=== PATIENT | male | born 1935 | race Caucasian/White ===

== ENCOUNTER 2024-05-13 13:54 | Observation (INO) | payer MEDICARE, BC, SELFPAY ==
[2024-05-13] VITALS (12 sets, daily range): BP systolic 114–148; BP diastolic 58–73; PULSE 62–78; RESP 15–26; TEMP 36.6–36.8; O2SAT 84–100; BMI 20.2
--- NOTE | 2024-05-13 13:59 | ED_ITS ---
Discharge Plan Disposition Patient Disposition: Admitted Condition: Serious Clinical Impressions Clinical Impression: Acute on chronic respiratory failure with hypoxia and hypercapnia, Lung mass, Elevated brain natriuretic peptide (BNP) level Discharge ED Provider: Chago Jasso HPI <LEXI Piper - Last Filed: 05/13/24 22:09> General Chief Complaint: Shortness of Breath/Dyspnea Stated Complaint: SOA Time Seen by Provider: 05/13/24 13:59 History of Present Illness HPI narrative: Patient presents for evaluation of shortness of breath. Patient reports a 3 to 5-day history of increasing dyspnea and dyspnea on exertion exercise intolerance. He has known COPD and wears oxygen at night however he has been get extremely winded even walking short distances. Patient was reportedly admitted at the end of April for a COPD exacerbation and pneumonia at [facility] in [employer] and then subsequently discharged to rehab facility however he has been home for approximately 2 weeks. Fortunately patient nor his son know his medic Tatian list and patient last was seen in our facility possibly in 2017 however we have minimal records as patient gets most of his care in [facility]. Patient's son noted that he walked from a chair to his bathroom he checked his oxygen saturation and it was in 70% at home. Hence EMS was called. Patient himself denies any fever chills hemoptysis hematochezia melena but reports dyspnea and subjective shortness of breath. Related Data Home Medications ?Medication ?Instructions ?Recorded ?Confirmed albuterol sulfate 90 mcg/actuation 90 mcg inhalation NEEDED PRN SOA 05/13/24 05/14/24 aerosol inhaler atorvastatin 40 mg tablet 40 mg PO HS 05/13/24 05/14/24 hydroxyzine pamoate 25 mg capsule 25 mg PO DAILY 05/13/24 metoprolol succinate 100 mg 100 mg PO DAILY 05/13/24 05/14/24 tablet,extended release 24 hr nifedipine 30 mg tablet,extended 30 mg PO DAILY 05/13/24 05/14/24 release 24 hr pantoprazole 40 mg tablet,delayed 40 mg PO BID 05/13/24 05/14/24 release prednisone 10 mg tablet 10 mg PO DAILY 05/13/24 05/14/24 tamsulosin 0.4 mg capsule 0.4 mg PO HS 05/13/24 05/14/24 levofloxacin 250 mg tablet 750 mg PO QODHS 05/14/24 Allergies Allergy/AdvReac Type Severity Reaction Status Date / Time No Known Allergies Allergy Unverified 04/17/17 14:04 [facility] <LEXI Piper - Last Filed: 05/13/24 22:09> [facility] Disclaimer: The information contained in this section may have been updated after the patient was seen, as this information can be updated by other users. Medical History (Updated 05/13/24 @ 23:16 by Moises Cordova MD) Bladder cancer COPD (chronic obstructive pulmonary disease) Lung cancer Surgical History History of intravascular stent placement Social History Smoking Status: Former smoker alcohol intake: former current occupational status: retired Travel in the last 8 weeks: None Have you lived/traveled outside US in past 30 days?: No Contact w/someone who lives/traveled outside US past 30 days?: No Exposure to someone with infectious disease in past 14 days?: No Do you have a fever (greater than 100.4 F or 38 C)?: No Have you tested positive for COVID-19: No Exposed to someone with COVID-19 in past 14 days?: No Do you have a sore throat?: No Do you have a cough?: No Do you have any weakness?: No Do you have any diarrhea?: No Are you experiencing any unusual bleeding?: No Do you have any muscle aches/pain?: No Do you have any abdominal pain?: No Are you experiencing loss of taste or smell?: No <LEXI Piper - Last Filed: 05/13/24 22:09> ROS Obtained: Yes Systems reviewed as appropriate & no additional complaints except as documented Physical Exam <LEXI Piper - Last Filed: 05/13/24 22:09> General General appearance: alert and in no apparent distress Respiratory Respiratory exam: Present respiratory distress (Patient has tachypnea and increased work of breathing), wheezes, accessory muscle use (Patient has intercostal muscle use) and prolonged expiratory phase; Absent normal lung sounds bilaterally (Patient has diminished breath sounds at the bases, right greater than left) Cardiovascular Cardiovascular exam: Present regular rate Abdominal Exam Abdominal exam: Present soft and normal bowel sounds; Absent tenderness, guarding or rebound Neurological Exam Neurological exam: Present alert and oriented X3 HEART Score <LEXI Piper - Last Filed: 05/13/24 22:09> HEART Score HEART Score assessment performed?: Yes History (anamnesis): Slightly suspicious ECG: Non-specific disturbance Age: >65 years Risk factors: Atherosclerosis history Troponin: </= normal limit HEART Score: 5 <Chago Jasso MD - Last Filed: 05/14/24 07:50> HEART Score HEART Score: 5 Critical Care <LEXI Piper - Last Filed: 05/13/24 22:09> Critical Care Time Critical Care Time: Yes Attestation: On 05/13/24, the high probability of a clinically significant, sudden or life threatening deterioration of the following system: Cardiac, pulmonary: Required my full and direct attention, intervention and personal management. The time I documented below is in addition to time spent performing reported procedures but includes the following listed in this critical care notation. Total Time Total Critical Care Time: 60 Medical Decision Making <LEXI Piper - Last Filed: 05/13/24 22:09> Medical Records Medical records reviewed: Yes I reviewed the patient's medical records. Richard Walton Pt receiving controlled substance: No Vital Signs Vital Signs: 05/13/24 13:55 05/13/24 13:56 05/13/24 14:31 Temperature Temperature Source Pulse Rate 73 Pulse Rate [Left Radial] 67 Respiratory Rate 26 H 20 Blood Pressure 118/58 L Blood Pressure [Right Arm] 148/64 H Blood Pressure Mean [Right Arm] 92 Blood Pressure Source Blood Pressure Position 02 Sat by Pulse Oximetry 84 L 100 94 L Oxygen Delivery Method Room Air Aerosol Mask Room Air Oxygen Flow Rate (LPM) 05/13/24 14:39 05/13/24 15:12 05/13/24 15:30 Temperature 97.8 F Temperature Source Oral Pulse Rate 69 Pulse Rate [Left Radial] Respiratory Rate 18 Blood Pressure 129/73 114/59 L Blood Pressure [Right Arm] Blood Pressure Mean [Right Arm] Blood Pressure Source Blood Pressure Position 02 Sat by Pulse Oximetry 100 Oxygen Delivery Method Room Air Room Air Oxygen Flow Rate (LPM) 05/13/24 16:01 05/13/24 16:31 05/13/24 16:47 Temperature Temperature Source Pulse Rate 62 66 Pulse Rate [Left Radial] Respiratory Rate 17 22 Blood Pressure 131/65 133/65 Blood Pressure [Right Arm] Blood Pressure Mean [Right Arm] Blood Pressure Source Blood Pressure Position 02 Sat by Pulse Oximetry 100 98 Oxygen Delivery Method Room Air Nasal Cannula Nasal Cannula Oxygen Flow Rate (LPM) 2 2 05/13/24 17:19 Temperature 98.2 F Temperature Source Pulse Rate 78 Pulse Rate [Left Radial] Respiratory Rate 16 Blood Pressure 133/65 Blood Pressure [Right Arm] Blood Pressure Mean [Right Arm] Blood Pressure Source Automatic Cuff Blood Pressure Position Supine 02 Sat by Pulse Oximetry Oxygen Delivery Method Room Air Oxygen Flow Rate (LPM) Lab Data Lab results reviewed: Yes I reviewed the patient's lab results. Labs: Lab Results 05/13/24 14:02: WBC 9.3, RBC 3.53 L, Hgb 11.1 L, Hct 37.0 L, MCV 104.8 H, MCH 31.4 H, MCHC 30.0 L, RDW 14.8, Plt Count 146, MPV 9.8, Neut % (Auto) 77.1, Lymph % (Auto) 13.8, Gonzales % (Auto) 7.9, Eos % (Auto) 0.6, Baso % (Auto) 0.3, Neut # (Auto) 7.1, Lymph # (Auto) 1.3, Gonzales # (Auto) 0.7, Eos # (Auto) 0.1, Baso # (Auto) 0.0, D-Dimer 1.24 H, Sodium 137, Potassium 4.2, Chloride 99, Carbon Dioxide 37 H, Anion Gap 5.2, BUN 25 H, Creatinine 1.40 H, Estimated Creat Clear 37, Estimated GFR 48 L, Est GFR ( Amer) 58 L, Glucose 165 H, Calcium 9.1, Magnesium 1.7, Total Bilirubin 0.8, AST 25, ALT 24, Alkaline Phosphatase 67, Troponin I < 0.01, NT-Pro-B Natriuret Pep 1510 H, Total Protein 6.0 L, Albumin 3.5, Globulin 2.5, Albumin/Globulin Ratio 1.4, Procalcitonin 0.067, HCV Ab CORKY w/Rflx PCR Qn Negative, HIV Ag/Ab Combo Qual Negative 05/13/24 14:10: VBG pH 7.34, VBG pCO2 63.6 H, VBG pO2 43.8 H, VBG HCO3 33.2 H, V BG Total CO2 35.1 H, VBG Base Excess 7.3 H, VBG Lactic Acid 2.0 05/13/24 15:28: Urine Color Yellow, Urine Appearance Clear, Urine pH 6.0, Ur Specific [place] 1.025, Urine Protein Negative, Urine Glucose (UA) Negative, Urine Ketones Negative, Urine Blood Negative, Urine Nitrate Negative, Urine Bilirubin Negative, Urine Urobilinogen 0.2, Ur Leukocyte Esterase Trace, Urine RBC 5-10, Urine WBC 10-20, Ur Squamous Epith Cells 3-5, Calcium Oxalate Crystal 1+, Urine Bacteria 2+, Urine Mucus 1+ 05/13/24 15:32: SARS-CoV-2 (PCR) Not detected, Influenza Type A (PCR) Not detected, Influenza Type B (PCR) Not detected, RSV (PCR) Detected A, Rhinovirus (PCR) Not detected 05/14/24 06:54 05/13/24 14:02 Response Orders (Tests/Meds): ED MEDICATIONS Generic Name Dose Route Start Last Admin Trade Name Freq PRN Reason Stop Dose Admin Albuterol/Ipratropium 3 ml 05/13/24 18:00 05/14/24 06:26 Ipratropium/Albuterol 3 Ml [facility] 06/12/24 17:59 3 ml Q6RT LIAM Administration Atorvastatin Calcium 40 mg 05/13/24 21:00 05/13/24 20:24 Atorvastatin 40mg Tablet PO 06/12/24 20:59 40 mg HS LIAM Administration Budesonide 0.5 mg 05/13/24 18:00 05/14/24 06:27 Budesonide 0.5mg/2ml [facility] 06/12/24 17:59 0.5 mg BIDRT LIAM Administration Enoxaparin Sodium 40 mg 05/14/24 09:00 Enoxaparin 40mg/0.4ml Syringe SUBCUT 06/13/24 08:59 DAILY [facility] Fluticasone/Umeclidinium/Vilanterol 1 puff 05/14/24 09:00 Fluticasone/Umeclidin/Vilanter 100/62.5/25mcg Inhaler 06/13/24 08:59 DAILY LIAM Ceftriaxone Sodium 1 gm/ 50 mls @ 100 mls/hr 05/13/24 16:15 05/13/24 16:17 Sodium Chloride IV 05/23/24 16:14 100 mls/hr Q24H LIAM Administration Azithromycin 500 mg/ Sodium 250 mls @ 250 mls/hr 05/13/24 16:15 05/13/24 16:17 Chloride IV 05/23/24 16:14 250 mls/hr Q24H LIAM Administration Metoprolol Succinate 100 mg 05/14/24 09:00 Metoprolol Succinate Xl 100mg Tablet PO 06/13/24 08:59 DAILY LIAM Prednisone 40 mg 05/14/24 09:00 Prednisone 20mg Tab PO 06/13/24 08:59 DAILY [facility] Sodium Chloride 3 ml 05/13/24 16:07 Sodium Chloride 3% 15ml [facility] 06/12/24 16:06 ONCE PRN INDUCE SPUTUM COLLECTION Tamsulosin HCl 0.4 mg 05/13/24 21:00 05/13/24 20:24 Tamsulosin 0.4mg Capsule PO 06/12/24 20:59 0.4 mg HS LIAM Administration Discontinued Medications Generic Name Dose Route Start Last Admin Trade Name Freq PRN Reason Stop Dose Admin Albuterol/Ipratropium 9 ml 05/13/24 14:24 05/13/24 14:28 Ipratropium/Albuterol 3 Ml [facility] 05/13/24 14:25 9 ml ONCE ONE Administration Furosemide 80 mg 05/13/24 14:46 05/13/24 15:01 Furosemide 40mg/4ml Vial IV 05/13/24 14:47 80 mg ONCE ONE Administration Magnesium Sulfate 2 gm in 50 mls @ 50 mls/hr 05/13/24 14:48 05/13/24 14:54 Magnesium Sulfate 2gm/50ml Premix IV 05/13/24 15:47 50 mls/hr ONCE ONE Administration Iopamidol 70 ml 05/13/24 15:02 05/13/24 15:08 Iopamidol-370 (76%);100ml Bottle IV 05/13/24 15:03 70 ml ONCE ONE Administration Methylprednisolone Sodium Succinate 125 mg 05/13/24 14:23 05/13/24 14:44 Methylprednisolone Sod Succ 125mg Vial IV 05/13/24 14:24 125 mg ONCE ONE Administration Sodium Chloride 40 ml 05/13/24 15:02 05/13/24 15:08 0.9 % Sodium Chloride 50 Ml Vial IV 05/13/24 15:03 40 ml ONCE ONE Administration Sodium Chloride 10 ml 05/13/24 15:02 05/13/24 15:08 Sodium Chloride 0.9% 10ml Syr (Rad Only) IV 05/13/24 15:03 10 ml ONCE ONE Administration ORDERS Category Date Time Status CT angio chest PE protocol Stat Cat Scan 05/13/24 14:40 Completed Pulmonology Consult [Consult to Pulmonology] [CONS] Cons 05/13/24 16:34 Active Routine Chest XR -- portable [XR chest portable] Stat Exams 05/13/24 14:24 Completed BNP [NT Pro Brain Natriuretic Pep.] Stat Lab 05/13/24 14:02 Completed CBC w/Auto Diff [Complete Blood Count Auto Diff] Stat Lab 05/13/24 14:02 Completed CMP [Comprehensive Metabolic Panel] Stat Lab 05/13/24 14:02 Completed Complete Blood Count Auto Diff AMLAB Lab 05/14/24 06:54 Completed Comprehensive Metabolic Panel AMLAB Lab 05/14/24 06:54 Received D-Dimer Stat Lab 05/13/24 14:02 Completed HIV Combo Stat Lab 05/13/24 14:02 Completed Hepatitis C Ab Qual. W/ RFX Stat Lab 05/13/24 14:02 Completed Magnesium AMLAB Lab 05/14/24 06:54 Received Magnesium Stat Lab 05/13/24 14:02 Completed Mini Respiratory Panel Stat Lab 05/13/24 15:32 Completed Procalcitonin Stat Lab 05/13/24 14:02 Completed QuantiFERON Client Incubated Stat Lab 05/13/24 16:45 Received Trop I [Troponin I] Stat Lab 05/13/24 14:02 Completed UA [Urinalysis and Microscopic] Stat Lab 05/13/24 15:28 Completed Blood Culture Stat Micro 05/13/24 14:09 Received Sputum Culture & Gram Stain Stat Micro 05/13/24 16:07 Ordered Urine Culture Stat Micro 05/13/24 15:28 Received Venous Blood Gas Routine RT 05/13/24 14:10 Results MDM Narrative Medical Decision Narrative: In summary patient is a 88-year-old male who presents to the emergency department for evaluation of dyspnea. Patient is normotensive at 148/64 pulse 67 breathing 26 times a minute satting at 84% on room air upon arrival, afebrile. Physical exam shows increased work of breathing with accessory muscle use and expiratory wheezes in all 4 canales diminished breath sounds at the bases, right greater than left but normal heart sounds. Patient has +1 dependent edema noted. Abdomen is soft no evidence of cellulitis anywhere patient appears to be in normal sinus rhythm on the bedside monitor. Differential diagnosis includes PE versus pneumonia versus COPD exacerbation versus CHF exacerbation versus malignancy etc. Initial workup will be conducted with hematologic labs VBG CT PE protocol urinalysis blood cultures. Initial interventions include DuoNeb Decadron Lasix. Initial workup reviewed by me shows a white count of 9.3 hemoglobin and hematocrit of 11.1 and 37.0 respectively with an absolute neutrophil count of 7.1, D-dimer is elevated at 1.24, VBG shows a pH of 7.37 pCO2 of 63.6 and a venous blood gas lactic acid of 2.0. Chemistry significant for a CO2 of 37 gap of 5.2 BUN of 25 creatinine 1.4 GFR 48 initial troponin of less than 0.01 and NT proBNP of 1510 and a procalcitonin of 0.067 urinalysis that on microscopic exam showed 5-10 red cells 10-20 white cells 3-5 epithelial cells and 2+ bacteria respiratory panel showed RSV. My informal interpretation of his CT scan PE protocol did not show any thrombus however it showed a right upper lobe consolidation that was not consistent with pneumonia but suggestive of possible mass along with another collection in the lateral sulcus. Patient also has left hilar irregularity suggestive of cancer. 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 He does not currently have an oncologist. I was able to obtain the discharge summary from [facility] in [employer] which I reviewed. Patient was admitted truly for COPD exacerbation and reported pneumonia and only imaging provided with a plain film chest x-ray which is consistent with the findings that I found today which is left hilar fullness in the right upper lobe abnormality on plain film chest x-ray as well as the lateral sulcus abnormality that apparently are unchanged since his admission in March. That raises the question of chronic infiltrate versus malignancy.. I started the patient on broad-spectrum antibiotics and the possibility of a atypical pneumonia after blood cultures were obtained. Given this I had interactive discussion with hospital medicine regarding patient's workup and findings and patient management. And he will be admitted for further evaluation and care pulmonology and oncology consults. <Chago Jasso MD - Last Filed: 05/14/24 07:50> Vital Signs Vital Signs: 05/13/24 13:55 05/13/24 13:56 05/13/24 14:31 Temperature Temperature Source Pulse Rate 73 Pulse Rate [Left Radial] 67 Respiratory Rate 26 H 20 Blood Pressure 118/58 L Blood Pressure [Right Arm] 148/64 H Blood Pressure Mean [Right Arm] 92 Blood Pressure Source Blood Pressure Position 02 Sat by Pulse Oximetry 84 L 100 94 L Oxygen Delivery Method Room Air Aerosol Mask Room Air Oxygen Flow Rate (LPM) 05/13/24 14:39 05/13/24 15:12 05/13/24 15:30 Temperature 97.8 F Temperature Source Oral Pulse Rate 69 Pulse Rate [Left Radial] Respiratory Rate 18 Blood Pressure 129/73 114/59 L Blood Pressure [Right Arm] Blood Pressure Mean [Right Arm] Blood Pressure Source Blood Pressure Position 02 Sat by Pulse Oximetry 100 Oxygen Delivery Method Room Air Room Air Oxygen Flow Rate (LPM) 05/13/24 16:01 05/13/24 16:31 05/13/24 16:47 Temperature Temperature Source Pulse Rate 62 66 Pulse Rate [Left Radial] Respiratory Rate 17 22 Blood Pressure 131/65 133/65 Blood Pressure [Right Arm] Blood Pressure Mean [Right Arm] Blood Pressure Source Blood Pressure Position 02 Sat by Pulse Oximetry 100 98 Oxygen Delivery Method Room Air Nasal Cannula Nasal Cannula Oxygen Flow Rate (LPM) 2 2 05/13/24 17:19 Temperature 98.2 F Temperature Source Pulse Rate 78 Pulse Rate [Left Radial] Respiratory Rate 16 Blood Pressure 133/65 Blood Pressure [Right Arm] Blood Pressure Mean [Right Arm] Blood Pressure Source Automatic Cuff Blood Pressure Position Supine 02 Sat by Pulse Oximetry Oxygen Delivery Method Room Air Oxygen Flow Rate (LPM) Lab Data Labs: Lab Results 05/13/24 14:02: WBC 9.3, RBC 3.53 L, Hgb 11.1 L, Hct 37.0 L, MCV 104.8 H, MCH 31.4 H, MCHC 30.0 L, RDW 14.8, Plt Count 146, MPV 9.8, Neut % (Auto) 77.1, Lymph % (Auto) 13.8, Gonzales % (Auto) 7.9, Eos % (Auto) 0.6, Baso % (Auto) 0.3, Neut # (Auto) 7.1, Lymph # (Auto) 1.3, [place] # (Auto) 0.7, Eos # (Auto) 0.1, Baso # (Auto) 0.0, D-Dimer 1.24 H, Sodium 137, Potassium 4.2, Chloride 99, Carbon Dioxide 37 H, Anion Gap 5.2, BUN 25 H, Creatinine 1.40 H, Estimated Creat Clear 37, Estimated GFR 48 L, Est GFR ( Amer) 58 L, Glucose 165 H, Calcium 9.1, Magnesium 1.7, Total Bilirubin 0.8, AST 25, ALT 24, Alkaline Phosphatase 67, Troponin I < 0.01, NT-Pro-B Natriuret Pep 1510 H, Total Protein 6.0 L, Albumin 3.5, Globulin 2.5, Albumin/Globulin Ratio 1.4, Procalcitonin 0.067, HCV Ab CORKY w/Rflx PCR Qn Negative, HIV Ag/Ab Combo Qual Negative 05/13/24 14:10: VBG pH 7.34, VBG pCO2 63.6 H, VBG pO2 43.8 H, VBG HCO3 33.2 H, V BG Total CO2 35.1 H, VBG Base Excess 7.3 H, VBG Lactic Acid 2.0 05/13/24 15:28: Urine Color Yellow, Urine Appearance Clear, Urine pH 6.0, Ur Specific [place] 1.025, Urine Protein Negative, Urine Glucose (UA) Negative, Urine Ketones Negative, Urine Blood Negative, Urine Nitrate Negative, Urine Bilirubin Negative, Urine Urobilinogen 0.2, Ur Leukocyte Esterase Trace, Urine RBC 5-10, Urine WBC 10-20, Ur Squamous Epith Cells 3-5, Calcium Oxalate Crystal 1+, Urine Bacteria 2+, Urine Mucus 1+ 05/13/24 15:32: SARS-CoV-2 (PCR) Not detected, Influenza Type A (PCR) Not detected, Influenza Type B (PCR) Not detected, RSV (PCR) Detected A, Rhinovirus (PCR) Not detected Response Orders (Tests/Meds): ED MEDICATIONS Generic Name Dose Route Start Last Admin Trade Name Freq PRN Reason Stop Dose Admin Albuterol/Ipratropium 3 ml 05/13/24 18:00 05/14/24 06:26 Ipratropium/Albuterol 3 Ml [facility] 06/12/24 17:59 3 ml Q6RT LIAM Administration Atorvastatin Calcium 40 mg 05/13/24 21:00 05/13/24 20:24 Atorvastatin 40mg Tablet PO 06/12/24 20:59 40 mg HS LIAM Administration Budesonide 0.5 mg 05/13/24 18:00 05/14/24 06:27 Budesonide 0.5mg/2ml [facility] 06/12/24 17:59 0.5 mg BIDRT LIAM Administration Enoxaparin Sodium 40 mg 05/14/24 09:00 Enoxaparin 40mg/0.4ml Syringe SUBCUT 06/13/24 08:59 DAILY [facility] Fluticasone/Umeclidinium/Vilanterol 1 puff 05/14/24 09:00 Fluticasone/Umeclidin/Vilanter 100/62.5/25mcg Inhaler 06/13/24 08:59 DAILY [facility] Ceftriaxone Sodium 1 gm/ 50 mls @ 100 mls/hr 05/13/24 16:15 05/13/24 16:17 Sodium Chloride IV 05/23/24 16:14 100 mls/hr Q24H LIAM Administration Azithromycin 500 mg/ Sodium 250 mls @ 250 mls/hr 05/13/24 16:15 05/13/24 16:17 Chloride IV 05/23/24 16:14 250 mls/hr Q24H LIAM Administration Metoprolol Succinate 100 mg 05/14/24 09:00 Metoprolol Succinate Xl 100mg Tablet PO 06/13/24 08:59 DAILY [facility] Prednisone 40 mg 05/14/24 09:00 Prednisone 20mg Tab PO 06/13/24 08:59 DAILY [facility] Sodium Chloride 3 ml 05/13/24 16:07 Sodium Chloride 3% 15ml [facility] 06/12/24 16:06 ONCE PRN INDUCE SPUTUM COLLECTION Tamsulosin HCl 0.4 mg 05/13/24 21:00 05/13/24 20:24 Tamsulosin 0.4mg Capsule PO 06/12/24 20:59 0.4 mg HS LIAM Administration Discontinued Medications Generic Name Dose Route Start Last Admin Trade Name Cynthia PRN Reason Stop Dose Admin Albuterol/Ipratropium 9 ml 05/13/24 14:24 05/13/24 14:28 Ipratropium/Albuterol 3 Ml Neb [facility] 05/13/24 14:25 9 ml ONCE ONE Administration Furosemide 80 mg 05/13/24 14:46 05/13/24 15:01 Furosemide 40mg/4ml Vial IV 05/13/24 14:47 80 mg ONCE ONE Administration Magnesium Sulfate 2 gm in 50 mls @ 50 mls/hr 05/13/24 14:48 05/13/24 14:54 Magnesium Sulfate 2gm/50ml Premix IV 05/13/24 15:47 50 mls/hr ONCE ONE Administration Iopamidol 70 ml 05/13/24 15:02 05/13/24 15:08 Iopamidol-370 (76%);100ml Bottle IV 05/13/24 15:03 70 ml ONCE ONE Administration Methylprednisolone Sodium Succinate 125 mg 05/13/24 14:23 05/13/24 14:44 Methylprednisolone Sod Succ 125mg Vial IV 05/13/24 14:24 125 mg ONCE ONE Administration Sodium Chloride 40 ml 05/13/24 15:02 05/13/24 15:08 0.9 % Sodium Chloride 50 Ml Vial IV 05/13/24 15:03 40 ml ONCE ONE Administration Sodium Chloride 10 ml 05/13/24 15:02 05/13/24 15:08 Sodium Chloride 0.9% 10ml Syr (Rad Only) IV 05/13/24 15:03 10 ml ONCE ONE Administration ORDERS Category Date Time Status CT angio chest PE protocol Stat Cat Scan 05/13/24 14:40 Completed Pulmonology Consult [Consult to Pulmonology] [CONS] Cons 05/13/24 16:34 Active Routine Chest XR -- portable [XR chest portable] Stat Exams 05/13/24 14:24 Completed BNP [NT Pro Brain Natriuretic Pep.] Stat Lab 05/13/24 14:02 Completed CBC w/Auto Diff [Complete Blood Count Auto Diff] Stat Lab 05/13/24 14:02 Completed CMP [Comprehensive Metabolic Panel] Stat Lab 05/13/24 14:02 Completed Complete Blood Count Auto Diff AMLAB Lab 05/14/24 06:54 Completed Comprehensive Metabolic Panel AMLAB Lab 05/14/24 06:54 Received D-Dimer Stat Lab 05/13/24 14:02 Completed HIV Combo Stat Lab 05/13/24 14:02 Completed Hepatitis C Ab Qual. W/ RFX Stat Lab 05/13/24 14:02 Completed Magnesium AMLAB Lab 05/14/24 06:54 Received Magnesium Stat Lab 05/13/24 14:02 Completed Mini Respiratory Panel Stat Lab 05/13/24 15:32 Completed Procalcitonin Stat Lab 05/13/24 14:02 Completed QuantiFERON Client Incubated Stat Lab 05/13/24 16:45 Received Trop I [Troponin I] Stat Lab 05/13/24 14:02 Completed UA [Urinalysis and Microscopic] Stat Lab 05/13/24 15:28 Completed Blood Culture Stat Micro 05/13/24 14:09 Received Sputum Culture & Gram Stain Stat Micro 05/13/24 16:07 Ordered Urine Culture Stat Micro 05/13/24 15:28 Received Venous Blood Gas Routine RT 05/13/24 14:10 Results MDM Narrative Medical Decision Narrative: In summary patient is a 88-year-old male who presents to the emergency department for evaluation of dyspnea. Patient is normotensive at 148/64 pulse 67 breathing 26 times a minute satting at 84% on room air upon arrival, afebrile. Physical exam shows increased work of breathing with accessory muscle use and expiratory wheezes in all 4 canales diminished breath sounds at the bases, right greater than left but normal heart sounds. Patient has +1 dependent edema noted. Abdomen is soft no evidence of cellulitis anywhere patient appears to be in normal sinus rhythm on the bedside monitor. Differential diagnosis includes PE versus pneumonia versus COPD exacerbation versus CHF exacerbation versus malignancy etc. Initial workup will be conducted with hematologic labs VBG CT PE protocol urinalysis blood cultures. Initial interventions include DuoNeb Decadron Lasix. Initial workup reviewed by me shows a white count of 9.3 hemoglobin and hematocrit of 11.1 and 37.0 respectively with an absolute neutrophil count of 7.1, D-dimer is elevated at 1.24, VBG shows a pH of 7.37 pCO2 of 63.6 and a venous blood gas lactic acid of 2.0. Chemistry significant for a CO2 of 37 gap of 5.2 BUN of 25 creatinine 1.4 GFR 48 initial troponin of less than 0.01 and NT proBNP of 1510 and a procalcitonin of 0.067 urinalysis that on microscopic exam showed 5-10 red cells 10-20 white cells 3-5 epithelial cells and 2+ bacteria respiratory panel showed RSV. My informal interpretation of his CT scan PE protocol did not show any thrombus however it showed a right upper lobe consolidation that was not consistent with pneumonia but suggestive of possible mass along with another collection in the lateral sulcus. Patient also has left hilar irregularity suggestive of cancer. 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 He does not currently have an oncologist. I was able to obtain the discharge summary from [facility] which I reviewed. Patient was admitted truly for COPD exacerbation and reported pneumonia and only imaging provided with a plain film chest x-ray which is consistent with the findings that I found today which is left hilar fullness in the right upper lobe abnormality on plain film chest x-ray as well as the lateral sulcus abnormality that apparently are unchanged since his admission in March. That raises the question of chronic infiltrate versus malignancy.. I started the patient on broad-spectrum antibiotics and the possibility of a atypical pneumonia after blood cultures were obtained. Given this I had interactive discussion with hospital medicine regarding patient's workup and findings and patient management. And he will be admitted for further evaluation and care pulmonology and oncology consults. I was consulted by the ALISTAIR, and we discussed the complexity of the problems being addressed. I approved the treatment and management plan for this patient's care in the Emergency Department, thus performing a substantive portion of the medical decision making. Chago Jasso MD
--- NOTE | 2024-05-13 14:01 | ECG_ITS ---
APPROVED REPORT Exam: Resting ECG HR:66 bpm ECG Measurements Heart Rate 66 AXES QRSd 112 QRS 59 QT 394 T 49 QTc 408 Conclusion SUPRAVENTRICULAR RHYTHM MODERATE INTRAVENTRICULAR CONDUCTION DELAY [110+ ms QRS DURATION] ABNORMAL RHYTHM ECG No STEMI appreciated though artifact significantly limits interpretation Electronically signed by : MICKY MEEHAN, 05/14/2024 03:18:33
--- NOTE | 2024-05-13 14:12 | PC.NURSE ---
2 sets of blood cultures sent to lab; blue band placed on left wrist.
[2024-05-13 14:20] LABS: VBG Base Excess 7.3 mmol/L (-2.4-2.3); VBG HCO3 33.2 mmol/L (23-30); VBG PCO2 63.6 mmol/L (35-51); VBG PH 7.34 mmol/L (7.31-7.41); VBG PO2 43.8 mmol/L (28-40); VBG Total CO2 35.1 mmol/L (23-27)
--- NOTE | 2024-05-13 14:24 | XR_ITS ---
FINAL REPORT CLINICAL HISTORY: Shortness of breath COMPARISON: None FINDINGS: Airspace disease within the right upper lobe is compatible with pneumonia. Elongated density left midlung is probably scarring. There is widening of the mediastinum, thoracic aneurysm not excluded. There is no pleural effusion. Heart size is normal. IMPRESSION: Findings suspicious for right upper lobe pneumonia. Continued follow-up recommended to exclude mass. Abnormal mediastinal widening which may be due to thoracic aneurysm. Chest CT follow-up may be considered. Reviewed, Interpreted and Dictated by Shorty Stoll MD Transcribed by Myah Art Authenticated and [facility]
[2024-05-13] MEDS: IPRATROPIUM/ALBUTEROL 3 ML NEB 9 ML IH (14:28)
[2024-05-13 14:30] LABS: Basophils % 0.3 % (0.1-2.0); Eosinophils # 0.1 K/mm3 (0.0-0.4); Eosinophils % 0.6 % (0.1-12.0); Hemoglobin 11.1 g/dL (14.1-18.0); Lymphocytes # 1.3 K/mm3 (0.7-4.5); Lymphocytes % 13.8 % (10-50); Mean Corpuscular Hemoglobin 31.4 pg (27.0-31.2); Mean Corpuscular Volume 104.8 fl (80-94); Mean Platelet Volume 9.8 fl (7.4-10.4); Monocytes # 0.7 K/mm3 (0.1-1.0); Monocytes % 7.9 % (1.7-9.3); Neutrophils # 7.1 K/mm3 (1.8-7.8); Neutrophils % 77.1 % (37.0-80.0); Platelet Count 146 K/mm3 (142-424); Red Blood Count 3.53 M/mm3 (4.60-6.20); Red Cell Distribution Width 14.8 % (11.5-17.5); White Blood Count 9.3 K/mm3 (4.8-10.8)
--- NOTE | 2024-05-13 14:30 | PC.NURSE ---
portable xray at
[2024-05-13 14:31] LABS: Albumin Level 3.5 g/dl (3.5-5.0); Chloride 99 mmol/L (98-107); Potassium 4.2 mmoL/L (3.5-5.1); Sodium 137 mmol/L (136-145)
[2024-05-13 14:34] LABS: Alanine Aminotransferase 24 U/L (12-78); Albumin/Globulin Ratio 1.4 (1.1-1.8); Alkaline Phosphatase 67 U/L (38-126); Anion Gap 5.2 mEq/L (5-15); Aspartate Amino Transferase 25 U/L (17-59); Bilirubin,Total 0.8 mg/dl (0.2-1.3); Blood Urea Nitrogen 25 mg/dl (9-20); Carbon Dioxide 37 mmol/L (22.0-30.0); Creatinine Clearance Estimated 37 mL/min (50-200); Estimated Glomerular Filt Rate 48 ml/min (>60); GFR (African American) 58 ML/MIN (>60); Globulin 2.5 g/dL (1.3-3.2)
[2024-05-13 14:35] LABS: Calcium 9.1 mg/dl (8.4-10.2); Glucose 165 mg/dl (74-100); Magnesium 1.7 mg/dl (1.6-2.3)
[2024-05-13 14:40] LABS: D-Dimer 1.24 ug/mL (0.0-0.5)
--- NOTE | 2024-05-13 14:40 | CT_ITS ---
FINAL REPORT TECHNIQUE: Thin section axial CT with contrast with multiplanar reconstruction This study was performed with techniques to keep radiation doses as low as reasonably achievable, (ALARA). Individualized dose reduction techniques using automated exposure control or adjustment of mA and/or kV according to the patient's size were employed. CLINICAL HISTORY: Shortness of breath COMPARISON: None FINDINGS: Pulmonary vessels enhance in normal fashion without evidence of embolism. Thoracic aorta shows no dissection or aneurysm. Irregular densities anterior right upper lobe may be inflammatory but less likely neoplasm. The largest component measures up to 18 mm and is well seen on image 35 of series 5. There is a spiculated masslike density in the left lower lobe and left perihilar region measuring 36 x 30 x 10 mm. Consolidation in the posterior aspect of the right upper lobe is suspicious for pneumonia. There is mild bronchial wall thickening which is compatible with bronchitis. There is no significant pleural effusion. There is no significant pericardial effusion. No mediastinal or hilar adenopathy is present. Limited images of the upper abdomen demonstrate severe right renal atrophy with bilateral renal stones. IMPRESSION: No evidence of pulmonary embolism Masslike opacity left perihilar region suspicious for neoplasm but pneumonia not excluded. Indeterminate opacities right upper lobe. PET-CT correlation recommended. Reviewed, Interpreted and Dictated by Shorty Stoll MD Transcribed by Lien Guajardo Authenticated and [facility]
[2024-05-13 14:44] LABS: NT Pro Brain Natriuretic Pep. 1510 pg/mL (0-450)
[2024-05-13] MEDS: METHYLPREDNISOLONE SOD SUCC 125MG VIAL 125 MG IV (14:44)
[2024-05-13 14:49] LABS: Troponin I < 0.01 ng/ml (0.00-0.034)
[2024-05-13] MEDS: MAGNESIUM SULFATE IN WATER 2 GM/50 ML PIGGYBACK IV (14:54)
--- NOTE | 2024-05-13 14:57 | PC.NURSE ---
pt to CT via stretcher
[2024-05-13] MEDS: FUROSEMIDE 40MG/4ML VIAL 80 MG IV (15:01)
[2024-05-13] MEDS: IOPAMIDOL-370 (76%);100ML BOTTLE 70 ML IV (15:08)
[2024-05-13] MEDS: 0.9 % SODIUM CHLORIDE 50 ML VIAL 40 ML IV (15:08)
[2024-05-13] MEDS: SODIUM CHLORIDE 0.9% 10ML SYR (RAD ONLY) 10 ML IV (15:08)
--- NOTE | 2024-05-13 15:16 | PC.NURSE ---
Pt returns to room 6. Reconnected to monitor. Pt unable to void at this time. Pt resting with call light in reach. side rails up x2
[2024-05-13 15:20] LABS: HIV Combo NEGATIVE (Negative)
[2024-05-13 15:29] LABS: Hepatitis C Ab Qual. W/ RFX NEGATIVE (Negative)
[2024-05-13 15:33] LABS: Microscopic, Urine URINE MICROSCOPIC (MICROSCOPIC)
[2024-05-13 15:35] LABS: Coronavirus 19, PCR Not Detected (NotDetected); Human Rhinovirus Not Detected (NotDetected); Influenza A, PCR Not Detected (NotDetected); Influenza B, PCR Not Detected (NotDetected)
[2024-05-13 15:47] LABS: Appearance,Urine CLEAR (Clear); Bilirubin,Urine Negative (Negative); Blood, Urine Negative (Negative); Color,Urine YELLOW (Yellow); Glucose,Urine (UA) Negative (Negative); Ketones,Urine Negative (Negative); Leukocyte Esterase,Urine TRACE (Negative); Nitrate,Urine Negative (Negative); Protein,Urine Negative (Negative); Specific Gravity, Urine 1.025 (1.005-1.030); Urobilinogen,Urine 0.2 EU/dl (0.2)
--- NOTE | 2024-05-13 15:54 | PC.NURSE ---
LEXI Newton at BS for update on POC. Family at BS
[2024-05-13] MEDS: AZITHROMYCIN 500 MG in 0.9 % SODIUM CHLORIDE 250 ML 250 MG IV (16:17)
[2024-05-13] MEDS: CEFTRIAXONE 1 GM 1 GM in 0.9 % SODIUM CHLORIDE 50 ML IV (16:17)
[2024-05-13 16:25] LABS: Procalcitonin 0.067 ng/mL (0.0-2.0)
--- NOTE | 2024-05-13 16:29 | PC.NURSE ---
Don speaking with HM for possible admission
--- NOTE | 2024-05-13 16:33 | EXP.HP ---
History of Present Illness *Admission Date: 05/13/24 *Reason for visit:: Short of breath *History of present illness: Mr. Lira is an 88-year-old male with previous history of tobacco use, CAD, CKD 3, BPH, history of lung cancer, COPD on chronic oxygen at night who presented to the ER with worsening shortness of breath for the past 2 to 3 days. Was recently admitted at [facility] in March from 04 24 through 04 29. Discharged to rehab ([facility]). Presents to the ER today because of worsening shortness of breath. Has not been home along but feels weak. On arrival to the ER, hypoxic with exertion. Afebrile. Denies nausea or vomiting. Having productive cough however. Quite wheezy on initial exam responded well to nebulizers. Found to have slight elevation of BNP. Chest imaging concerning for perihilar lesion on left lung and right upper lobe lesions suspicious for cancer versus infection. Respiratory panel positive for RSV. Medicine consulted for admission for COPD exacerbation. After arrival to the floor, patient is sitting at the bedside on 2 L nasal cannula eating dinner. Answer questions appropriately. Alert and oriented x 4. States he is feeling somewhat short of breath. Denies any fever, nausea, vomiting. Has had a slightly productive cough for 2 to 3 days. Very hard of hearing during interview. States he feels too weak to be at home. Lives with family. [facility] Disclaimer: The information contained in this section may have been updated after the patient was seen, as this information can be updated by other users. Medical History (Updated 05/13/24 @ 23:16 by Moises Cordova MD) Bladder cancer COPD (chronic obstructive pulmonary disease) Lung cancer Surgical History History of intravascular stent placement Social History Smoking Status: Former smoker alcohol intake: former current occupational status: retired Travel in the last 8 weeks: None Have you lived/traveled outside [place] in past 30 days?: No Contact w/someone who lives/traveled outside US past 30 days?: No Exposure to someone with infectious disease in past 14 days?: No Do you have a fever (greater than 100.4 F or 38 C)?: No Have you tested positive for COVID-19: No Exposed to someone with COVID-19 in past 14 days?: No Do you have a sore throat?: No Do you have a cough?: No Do you have any weakness?: No Do you have any diarrhea?: No Are you experiencing any unusual bleeding?: No Do you have any muscle aches/pain?: No Do you have any abdominal pain?: No Are you experiencing loss of taste or smell?: No Review of Systems Review of Systems Review of systems (narrative): 14 point review of systems performed, pertinent positives and negatives as per [facility] Meds Home Medications and Allergies Home Medications ?Medication ?Instructions ?Recorded ?Confirmed ?Type albuterol sulfate 90 mcg/actuation 90 mcg inhalation NEEDED PRN SOA 05/13/24 05/13/24 History aerosol inhaler atorvastatin 40 mg tablet 40 mg PO HS 05/13/24 05/13/24 History hydroxyzine pamoate 25 mg capsule 25 mg PO DAILY 05/13/24 05/13/24 History metoprolol succinate 100 mg 100 mg PO DAILY 05/13/24 05/13/24 History tablet,extended release 24 hr nifedipine 30 mg tablet,extended 30 mg PO DAILY 05/13/24 05/13/24 History release 24 hr pantoprazole 40 mg tablet,delayed 40 mg PO BID 05/13/24 05/13/24 History release prednisone 10 mg tablet 10 mg PO DAILY 05/13/24 05/13/24 History tamsulosin 0.4 mg capsule 0.4 mg PO HS 05/13/24 05/13/24 History New Prescriptions to Start Prescriptions: Allergies Allergy/AdvReac Type Severity Reaction Status Date / Time No Known Allergies Allergy Unverified 04/17/17 14:04 Exam Data for Last 24 hours Vital signs and Labs for Last 24 Hours: Temp Pulse Resp BP Pulse Ox O2 Del Method 97.8 F 62 17 131/65 100 Room Air 05/13/24 14:39 05/13/24 16:01 05/13/24 16:01 05/13/24 16:01 05/13/24 16:01 05/13/24 16:01 Laboratory Results - last 24 hr 05/13/24 14:02: WBC 9.3, RBC 3.53 L, Hgb 11.1 L, Hct 37.0 L, MCV 104.8 H, MCH 31.4 H, MCHC 30.0 L, RDW 14.8, Plt Count 146, MPV 9.8, Neut % (Auto) 77.1, Lymph % (Auto) 13.8, [place] % (Auto) 7.9, Eos % (Auto) 0.6, Baso % (Auto) 0.3, Neut # (Auto) 7.1, Lymph # (Auto) 1.3, [place] # (Auto) 0.7, Eos # (Auto) 0.1, Baso # (Auto) 0.0, D-Dimer 1.24 H, Sodium 137, Potassium 4.2, Chloride 99, Carbon Dioxide 37 H, Anion Gap 5.2, BUN 25 H, Creatinine 1.40 H, Estimated Creat Clear 37, Estimated GFR 48 L, Est GFR ( Amer) 58 L, Glucose 165 H, Calcium 9.1, Magnesium 1.7, Total Bilirubin 0.8, AST 25, ALT 24, Alkaline Phosphatase 67, Troponin I < 0.01, NT-Pro-B Natriuret Pep 1510 H, Total Protein 6.0 L, Albumin 3.5, Globulin 2.5, Albumin/Globulin Ratio 1.4, HCV Ab CORKY w/Rflx PCR Qn Negative, HIV Ag/Ab Combo Qual Negative 05/13/24 14:10: VBG pH 7.34, VBG pCO2 63.6 H, VBG pO2 43.8 H, VBG HCO3 33.2 H, VBG Total CO2 35.1 H, VBG Base Excess 7.3 H, VBG Lactic Acid 2.0 05/13/24 15:28: Urine Color Yellow, Urine Appearance Clear, Urine pH 6.0, Ur Specific [place] 1.025, Urine Protein Negative, Urine Glucose (UA) Negative, Urine Ketones Negative, Urine Blood Negative, Urine Nitrate Negative, Urine Bilirubin Negative, Urine Urobilinogen 0.2, Ur Leukocyte Esterase Trace I & O for Last 24 hours: Intake & Output 05/10/24 05/11/24 05/12/24 05/13/24 23:59 23:59 23:59 23:59 Weight 69.4 kg Constitutional Constitutional: no acute distress, cachectic, chronically ill appearing and cooperative *Routine HEENT Exam Head: Present normocephalic Eye: Present EOMI and PERRL ENT: Present mucous membranes moist *Routine Neck Exam Neck: Present supple; Absent lymphadenopathy *Routine Respiratory Exam Respiratory: Present prolonged expiratory phase, rhonchi, wheezes and diminished air movement; Absent crackles *Routine Cardiovascular Exam Cardiovascular: Present RRR *Routine Abdominal Exam Abdominal: Present soft and normoactive bowel sounds; Absent tenderness *Routine Rectal Exam Rectal:: deferred *Routine Genitalia Exam Genitalia:: deferred *Routine Extremities Exam Extremities: Absent cyanosis, clubbing or edema *Routine Skin Exam Skin: Present warm; Absent rash *Routine Neurological Exam Neurological: Present alert, oriented X3 and moving all extremities; Absent altered mental status or hearing grossly intact (Very hard of hearing) Assessment and Plan *Assessment and plan (1) Acute and chronic respiratory failure with hypoxia: Status: Acute Category: Medical Code(s): J96.21 - Acute and chronic respiratory failure with hypoxia (2) COPD (chronic obstructive pulmonary disease): Status: Acute Category: Medical Code(s): J44.9 - Chronic obstructive pulmonary disease, unspecified (3) Lung mass: Status: Acute Category: Medical Code(s): R91.8 - Other nonspecific abnormal finding of lung field (4) CKD (chronic kidney disease): Status: Acute Category: Medical Code(s): N18.9 - Chronic kidney disease, unspecified (5) Severe protein-calorie malnutrition: Status: Acute Category: Medical Code(s): E43 - Unspecified severe protein-calorie malnutrition Plan 89-year-old male with COPD, CAD, BPH, nocturnal oxygen requirement. Presents with worsening shortness of breath. Found to be RSV positive. Discussed case with ER provider, request admission for further management COPD exacerbation and evaluation of abnormal lesions on chest imaging. I agreed to admit for further care. Patient has previously gotten his care at [facility] in [facility]. Reviewed records from their facility, recent admission at the end of March for similar presentation. Discharged from their hospital to rehab. Recently returned home and remains quite weak. Has no infection. Necessitating inpatient care. Problems addressed as follows: Acute hypoxemic respiratory failure COPD exacerbation - Chest imaging personally reviewed showing left perihilar mass and right upper lobe patchy findings concerning for pneumonia versus mass. -Initiated on ceftriaxone and azithromycin in the ER. Plan to continue daily. Continue prednisone 40 mg daily for COPD exacerbation. -Pulmonology consulted to assist with care and further eval of lung lesions seen on chest imaging -Supplemental oxygen as needed, goal sats greater 90%. Currently on 2 L. - Blood gas with compensated respiratory acidosis, pH 7.34. pCO2 63. Chemistry shows normal potassium of 4.2, bicarb 37 on CMP. Kidney function consistent with records from [facility] from March that I personally reviewed. BUN 25, creatinine 1.4. Consistent with CKD. -Blood and sputum cultures pending History of CAD and hyperlipidemia. Continue Lipitor 40 mg nightly, metoprolol succinate 100 mg daily, received Lasix 80 mg IV once. Will evaluate daily for further diuretic needs. -BNP elevated at 1510. Presentation concerning for CHF or COPD exacerbation. Respiratory panel positive for RSV. In light of new oxygen requirement from baseline, viral panel findings, and productive cough, will treat for COPD exacerbation. patient does not clinically look volume overloaded on exam. Holding on further diuresis BPH: Continue tamsulosin 0.4 mg nightly Given weakness, recurrent admissions, protein calorie malnutrition, will have PT and OT evaluate patient for home health versus placement. DNR Regular diet
[2024-05-13 16:56] LABS: Bacteria,Urine 2+ /lpf; Calcium Oxalate Crystals,Urine 1+ /lpf; Mucus,Urine 1+ /lpf
--- NOTE | 2024-05-13 17:04 | PC.NURSE ---
care handoff report called to Selma DYSON
[2024-05-13 17:06] LABS: Respiratory Syncytial Virus Detected (NotDetected)
--- NOTE | 2024-05-13 17:30 | PC.NURSE ---
arrived by w/c from ED
--- NOTE | 2024-05-13 17:42 | PC.NURSE ---
pt unable to recall what medications he takes at home. pt also states that he has an allergy to a medication but cannot remember the name. says it was for a kidney infection. will attempt to ask son when he arrives
[2024-05-13] MEDS: IPRATROPIUM/ALBUTEROL 3 ML NEB IH ×2 (18:14→23:28)
[2024-05-13] MEDS: BUDESONIDE 0.5MG/2ML NEB 0.5 MG IH (18:41)
[2024-05-13] MEDS: TAMSULOSIN 0.4MG CAPSULE 0.4 MG PO (20:24)
[2024-05-13] MEDS: ATORVASTATIN 40MG TABLET 40 MG PO (20:24)
[2024-05-14] VITALS (7 sets, daily range): BP systolic 130–149; BP diastolic 69–84; PULSE 70–89; RESP 17–22; TEMP 36.5–36.9; O2SAT 92–98; BMI 20.3
[2024-05-14] MEDS: IPRATROPIUM/ALBUTEROL 3 ML NEB IH ×2 (06:26→12:48)
[2024-05-14] MEDS: BUDESONIDE 0.5MG/2ML NEB 0.5 MG IH (06:27)
[2024-05-14 07:41] LABS: Basophils % 0.1 % (0.1-2.0); Hematocrit 33.4 % (42.0-52.0); Hemoglobin 10.1 g/dL (14.1-18.0); Lymphocytes # 0.6 K/mm3 (0.7-4.5); Lymphocytes % 7.1 % (10-50); Mean Corpuscular HGB Conc 30.2 g/dL (31.8-35.4); Mean Corpuscular Hemoglobin 31.2 pg (27.0-31.2); Mean Corpuscular Volume 103.1 fl (80-94); Mean Platelet Volume 9.8 fl (7.4-10.4); Monocytes # 0.6 K/mm3 (0.1-1.0); Monocytes % 7.1 % (1.7-9.3); Neutrophils # 6.6 K/mm3 (1.8-7.8); Neutrophils % 85.2 % (37.0-80.0); Platelet Count 134 K/mm3 (142-424); Red Blood Count 3.24 M/mm3 (4.60-6.20); Red Cell Distribution Width 14.5 % (11.5-17.5); White Blood Count 7.7 K/mm3 (4.8-10.8)
[2024-05-14 07:52] LABS: Alanine Aminotransferase 22 U/L (12-78); Albumin Level 3.1 g/dl (3.5-5.0); Albumin/Globulin Ratio 1.3 (1.1-1.8); Alkaline Phosphatase 64 U/L (38-126); Aspartate Amino Transferase 25 U/L (17-59); Bilirubin,Total 0.3 mg/dl (0.2-1.3); Blood Urea Nitrogen 35 mg/dl (9-20); Calcium 8.7 mg/dl (8.4-10.2); Chloride 98 mmol/L (98-107); Creatinine Clearance Estimated 37 mL/min (50-200); Estimated Glomerular Filt Rate 48 ml/min (>60); GFR (African American) 58 ML/MIN (>60); Globulin 2.3 g/dL (1.3-3.2); Glucose 105 mg/dl (74-100); Magnesium 2.2 mg/dl (1.6-2.3); Sodium 140 mmol/L (136-145); Total Protein,Serum 5.4 g/dl (6.3-8.2)
--- NOTE | 2024-05-14 08:32 | HMH.PHAINT1 ---
Pharmacy Intervention Comments: VERIFIED MEDICATIONS WITH OUTPATIENT PHARMACY. CONFIRMED MEDICATIONS WITH PATIENT.
[2024-05-14] MEDS: predniSONE 20MG TAB 40 MG PO (08:50)
[2024-05-14] MEDS: METOPROLOL SUCCINATE XL 100MG TABLET 100 MG PO (08:50)
[2024-05-14] MEDS: ENOXAPARIN 40MG/0.4ML SYRINGE 40 MG SUBCUT (08:51)
[2024-05-14] MEDS: FLUTICASONE/UMECLIDIN/VILANTER 100/62.5/25MCG INHALER 1 PUFF IH (08:59)
[2024-05-14 09:08] LABS: Potassium 4.6 mmoL/L (3.5-5.1)
--- NOTE | 2024-05-14 09:39 | EXP.PULM.CON ---
History of Present Illness History of present illness: Mr. Lira is a 88-year-old male with history of developing this, CAD, CKD COPD presented to the ER with worsening respiratory distress and pulmonary was called for further evaluation and management. Patient is a current smoker greater than [id number] smoking history at baseline using Breztri inhaler. Recently admitted to hospital in [facility], discharged home on new oxygen supplementation. Patient was also told about the now found concerning lung nodule. [facility] Disclaimer: The information contained in this section may have been updated after the patient was seen, as this information can be updated by other users. Medical History (Updated 05/14/24 @ 12:12 by Enedelia Patricia MD) COPD exacerbation Pulmonary emphysema Pneumonia Multiple lung nodules on CT Bladder cancer COPD (chronic obstructive pulmonary disease) Lung cancer Surgical History History of intravascular stent placement Social History Smoking Status: Former smoker alcohol intake: former current occupational status: retired Travel in the last 8 weeks: None Have you lived/traveled outside [place] in past 30 days?: No Contact w/someone who lives/traveled outside US past 30 days?: No Exposure to someone with infectious disease in past 14 days?: No Do you have a fever (greater than 100.4 F or 38 C)?: No Have you tested positive for COVID-19: No Exposed to someone with COVID-19 in past 14 days?: No Do you have a sore throat?: No Do you have a cough?: No Do you have any weakness?: No Do you have any diarrhea?: No Are you experiencing any unusual bleeding?: No Do you have any muscle aches/pain?: No Do you have any abdominal pain?: No Are you experiencing loss of taste or smell?: No Review of Systems Constitutional Constitutional: Reports anorexia, Reports body ache(s) and Reports fatigue Eyes Eyes: Denies eye discharge, Denies dry eyes, Denies irritation and Denies itchy eyes ENT Ears, Nose, Mouth, and Throat: Denies epistaxis, Denies facial pain, Denies lip swelling and Denies throat swelling *Cardiovascular Cardiovascular: Reports dyspnea and Reports dyspnea on exertion *Respiratory Respiratory: Denies change in phlegm color, Reports chest congestion, Reports cough, Reports dyspnea, Reports dyspnea on exertion, Reports excessive phlegm production and Reports wheezing *Gastrointestinal Gastrointestinal: Denies abdominal pain, Denies belching and Denies cramping *Musculoskeletal Musculoskeletal: Reports back pain, Reports myalgias and Reports other (No small joint swelling or Pain) Psychiatric Psychiatric: Denies homicidal ideation and Denies suicidal ideation Endocrine Endocrine: Reports fatigue and Denies heat intolerance Hematologic/Lymphatic Hematologic/Lymphatic: Denies easy bleeding and Denies lymphadenopathy Allergic/Immunologic Allergic/Immunologic: Denies itchy eyes, Denies lip swelling, Denies throat swelling and Reports wheezing Pulmonology Exam Inpatient Vital signs and Labs for Last 24 Hours: Temp Pulse Resp BP Pulse Ox O2 Del Method O2 Flow Rate 98.5 F 72 20 140/72 92 L Nasal Cannula 2 05/14/24 08:00 05/14/24 08:00 05/14/24 08:00 05/14/24 08:00 05/14/24 08:00 05/14/24 08:00 05/14/24 08:00 Laboratory Results - last 24 hr 05/13/24 14:02: WBC 9.3, RBC 3.53 L, Hgb 11.1 L, Hct 37.0 L, MCV 104.8 H, MCH 31.4 H, MCHC 30.0 L, RDW 14.8, Plt Count 146, MPV 9.8, Neut % (Auto) 77.1, Lymph % (Auto) 13.8, [place] % (Auto) 7.9, Eos % (Auto) 0.6, Baso % (Auto) 0.3, Neut # (Auto) 7.1, Lymph # (Auto) 1.3, [place] # (Auto) 0.7, Eos # (Auto) 0.1, Baso # (Auto) 0.0, D-Dimer 1.24 H, Sodium 137, Potassium 4.2, Chloride 99, Carbon Dioxide 37 H, Anion Gap 5.2, BUN 25 H, Creatinine 1.40 H, Estimated Creat Clear 37, Estimated GFR 48 L, Est GFR ( Amer) 58 L, Glucose 165 H, Calcium 9.1, Magnesium 1.7, Total Bilirubin 0.8, AST 25, ALT 24, Alkaline Phosphatase 67, Troponin I < 0.01, NT-Pro-B Natriuret Pep 1510 H, Total Protein 6.0 L, Albumin 3.5, Globulin 2.5, Albumin/Globulin Ratio 1.4, Procalcitonin 0.067, HCV Ab CROKY w/Rflx PCR Qn Negative, HIV Ag/Ab Combo Qual Negative 05/13/24 14:10: VBG pH 7.34, VBG pCO2 63.6 H, VBG pO2 43.8 H, VBG HCO3 33.2 H, VBG Total CO2 35.1 H, VBG Base Excess 7.3 H, VBG Lactic Acid 2.0 05/13/24 15:28: Urine Color Yellow, Urine Appearance Clear, Urine pH 6.0, Ur Specific [place] 1.025, Urine Protein Negative, Urine Glucose (UA) Negative, Urine Ketones Negative, Urine Blood Negative, Urine Nitrate Negative, Urine Bilirubin Negative, Urine Urobilinogen 0.2, Ur Leukocyte Esterase Trace, Urine RBC 5-10, Urine WBC 10-20, Ur Squamous Epith Cells 3-5, Calcium Oxalate Crystal 1+, Urine Bacteria 2+, Urine Mucus 1+ 05/13/24 15:32: SARS-CoV-2 (PCR) Not detected, Influenza Type A (PCR) Not detected, Influenza Type B (PCR) Not detected, RSV (PCR) Detected A, Rhinovirus (PCR) Not detected 05/14/24 06:54: WBC 7.7, RBC 3.24 L, Hgb 10.1 L, Hct 33.4 L, MCV 103.1 H, MCH 31.2, MCHC 30.2 L, RDW 14.5, Plt Count 134 L, MPV 9.8, Neut % (Auto) 85.2 H, Lymph % (Auto) 7.1 L, [place] % (Auto) 7.1, Eos % (Auto) 0.0 L, Baso % (Auto) 0.1, Neut # (Auto) 6.6, Lymph # (Auto) 0.6 L, [place] # (Auto) 0.6, Eos # (Auto) 0.0, Baso # (Auto) 0.0, Sodium 140, Potassium 4.6, Chloride 98, BUN 35 H D, Creatinine 1.40 H, Estimated Creat Clear 37, Estimated GFR 48 L, Est GFR ( Amer) 58 L, Glucose 105 H D, Calcium 8.7, Magnesium 2.2 D, Total Bilirubin 0.3, AST 25, ALT 22, Alkaline Phosphatase 64, Total Protein 5.4 L, Albumin 3.1 L D, Globulin 2.3, Albumin/Globulin Ratio 1.3 I & O for Labs for Last 24 Hours: Intake & Output 05/11/24 05/12/24 05/13/24 05/14/24 23:59 23:59 23:59 23:59 Intake Total 560 / 560 Output Total 300 / 300 350 / 350 Balance -300 / -60 210 / 210 Weight 153 lb 153 lb 7.068 oz Constitutional: Present moderate distress Head: Present normocephalic and atraumatic ENT: Present normal exam, normal oropharynx and mucous membranes moist Neck: Present normal inspection and full ROM Respiratory: Present respiratory distress and able to speak in complete sentences; Absent wheezes, crackles or diminished air movement Cardiac: Present S1/S2, Tachycardia and radial pulses present GI: Present soft and distention; Absent tenderness or guarding Skin: Present intact; Absent cyanosis or jaundice Neuro: Present alert, awake and oriented x 3 Extremities: Present normal inspection; Absent clubbing or cyanosis Psychiatric: Present normal affect and cooperative Meds Home Medications and Allergies Home Medications ?Medication ?Instructions ?Recorded ?Confirmed ?Type albuterol sulfate 90 mcg/actuation 90 mcg inhalation NEEDED PRN 05/13/24 05/14/24 History aerosol inhaler Shortness Of Breath atorvastatin 40 mg tablet 40 mg PO HS 05/13/24 05/14/24 History metoprolol succinate 100 mg 100 mg PO DAILY 05/13/24 05/14/24 History tablet,extended release 24 hr nifedipine 30 mg tablet,extended 30 mg PO DAILY 05/13/24 05/14/24 History release 24 hr pantoprazole 40 mg tablet,delayed 40 mg PO BID 05/13/24 05/14/24 History release prednisone 10 mg tablet 10 mg PO DAILY 05/13/24 05/14/24 History tamsulosin 0.4 mg capsule 0.4 mg PO HS 05/13/24 05/14/24 History New Prescriptions to Start Prescriptions: Allergies Allergy/AdvReac Type Severity Reaction Status Date / Time No Known Allergies Allergy Unverified 04/17/17 14:04 Results Laboratory Findings 05/14/24 06:54 05/14/24 06:54 PT/INR, D-dimer D-Dimer 1.24 ug/mL (0.0-0.5) H 05/13/24 14:02 Abnormal lab findings: Abnormal Labs 05/13/24 05/13/24 05/13/24 14:02 14:10 15:32 RBC 3.53 L Hgb 11.1 L Hct 37.0 L MCV 104.8 H MCH 31.4 H MCHC 30.0 L Plt Count Neut % (Auto) Lymph % (Auto) Eos % (Auto) Lymph # (Auto) D-Dimer 1.24 H VBG pCO2 63.6 H VBG pO2 43.8 H VBG HCO3 33.2 H VBG Total CO2 35.1 H VBG Base Excess 7.3 H Carbon Dioxide 37 H BUN 25 H Creatinine 1.40 H Estimated GFR 48 L Est GFR ( Amer) 58 L Glucose 165 H NT-Pro-B Natriuret Pep 1510 H Total Protein 6.0 L Albumin RSV (PCR) Detected A 05/14/24 06:54 RBC 3.24 L Hgb 10.1 L Hct 33.4 L MCV 103.1 H MCH MCHC 30.2 L Plt Count 134 L Neut % (Auto) 85.2 H Lymph % (Auto) 7.1 L Eos % (Auto) 0.0 L Lymph # (Auto) 0.6 L D-Dimer VBG pCO2 VBG pO2 VBG HCO3 VBG Total CO2 VBG Base Excess Carbon Dioxide BUN 35 H D Creatinine 1.40 H Estimated GFR 48 L Est GFR ( Amer) 58 L Glucose 105 H D NT-Pro-B Natriuret Pep Total Protein 5.4 L Albumin 3.1 L D RSV (PCR) Assessment and Plan *Assessment and plan (1) Multiple lung nodules on CT: Status: Acute Category: Medical Code(s): R91.8 - Other nonspecific abnormal finding of lung field (2) Pneumonia: Status: Acute Category: Medical Code(s): J18.9 - Pneumonia, unspecified organism (3) Pulmonary emphysema: Status: Acute Category: Medical Code(s): J43.9 - Emphysema, unspecified (4) COPD exacerbation: Status: Acute Category: Medical Code(s): J44.1 - Chronic obstructive pulmonary disease with (acute) exacerbation Plan Mr. Lira is a 88-year-old male with history of developing this, CAD, CKD COPD presented to the ER with worsening respiratory distress and pulmonary was called for further evaluation and management. Patient is a current smoker greater than [id number] smoking history at baseline using Breztri inhaler. Recently admitted to hospital in [facility], discharged home on new oxygen supplementation. Patient was also told about the now found concerning lung nodule. CTA on admission, right upper lobe patchy airspace disease, right middle lobe patchy airspace disease and concerning nodular opacity in the left lingula. Emphysematous changes also noted. No evidence of pulmonary embolism. No recent prior imaging available for review/comparison. Patient currently being managed for COPD exacerbation. Afebrile. Hemodynamically stable. No evidence of leukocytosis. Present on admission did not show any evidence of hypoxic respiratory failure. Chronic hypercarbia with a pH of 7.36 and pCO2 of 63.6. RSV PCR resulted positive. Currently receiving ceftriaxone, azithromycin, steroids and nebulization therapy. Plan: On 2 L saturating 96% this morning, continue to wean as tolerated With inhalers of Breztri 2 puffs twice daily Albuterol/DuoNebs 4 times daily as needed Continue prednisone 40 mg daily x 5 days Continue current antibiotics pending culture results on medical records review Obtain medical records from [facility] including hospital course and CT imaging For the concerning left lingular opacity will follow with repeat CT scanning in 6 to 8 weeks. Will also compare the imaging from his prior imaging from his recent hospital admission. # Thank you for involving pulmonary in this patient care. Will continue to follow.
--- NOTE | 2024-05-14 09:54 | HMH.PTEV ---
Physical Therapy Evaluation Rehab PT IP Evaluation Start: 05/13/24 16:34 Freq: ONCE Status: Active Protocol: Document 05/14/24 09:51 FREDERICK (Rec: 05/14/24 09:54 MIRELLANiKAIDEN [id number]) Subjective/History History History 88-year-old male with previous history of tobacco use, CAD, CKD 3, BPH, history of lung cancer, COPD on chronic oxygen at night who presented to the ER with worsening shortness of breath for the past 2 to 3 days. Found to be positive for RSV. He reports he lives with family, 2-3 LIZ the home, and he is generally independent with all mobility at baseline without AD. He reports he uses oxygen via [place] at home, but only at night typically. Subjective Subjective Currently on 2L/min NC O2, readily agrees to mobility assessment and has no c/o at this time. Oxygen sat 97% prior to treatment and 91% immediately after treatment. Rehab PT IP Eval Objective Appearance Patient Behavior Appropriate Patient Orientation Person,Place,Time Difficulty following instructions none Speech Pattern Clear Ambulation Patient Able to Ambulate Yes Ambulation Observation IP General Gait Pattern Observation No Deviations/Normal Ambulation Distance (feet) 50 Ambulation Assistive Device None Ambulation Ability Supervision/Stand by Balance Ability to Arise Able, uses arms to help Sitting Balance Steady, safe Standing Balance Steady, wide stance Dynamic Sitting Balance Ability Good Dynamic Standing Balance Ability Good Transfers Bed Transfer Ability Supervision/Stand by Chair Transfer Ability Supervision/Stand by Sit to Stand Bed Transfer Ability Supervision/Stand by Sit to Stand Chair Transfer Ability Supervision/Stand by Rehab PT IP prob,goals,plan Problems Date of Evaluation: 05/14/24 Discharge Plan PT Discharge Plan Pt currently appears to be at baseline for all transfers and ambulation and has no skilled inpatient therapy needs. Recommend home health therapy after d/c once medically stable. Eval Complexity Eval Charge Codes 39370 - High Complexity PHYSICIAN CERTIFICATION: I certify the specified therapy services for Elvis Lira are required, authorized, and reviewed every 30 days.
[2024-05-14 09:58] LABS: Anion Gap 8.6 mEq/L (5-15); Carbon Dioxide 38 mmol/L (22.0-30.0)
--- NOTE | 2024-05-14 10:34 | SW/DCPLANNER ---
Addendum entered by Gricelda Walsh RN 05/15/24 15:00: Patient is discharging home today and does not have enough oxygen to make the trip home. I have contacted [facility] with patient's consent, and plan is for portable O2 tank to be delivered her to patient's room prior to discharge. Patient was made aware that cost will be $35 and that he will need to return it to [facility] once he is finished with it, and he was agreeable. Addendum entered by Casi Madrid 05/15/24 14:02: Patient is currently established w/ [facility]. I have updated [employer] [employer] w/ [facility] and faxed updated patient information. Original Note: I spoke w/ this patient regarding plans once medically stable for discharge. PT evaluated patient and recommended home health services. Patient expressed that he is currently established w/ home health. Patient believes he is established w/ [facility]. I will follow up w/ [facility] this AM and fax updated patient information. Discharge date is unknown at this time.
--- NOTE | 2024-05-14 10:46 | HMH.OTEV ---
OT Inpatient Evaluation Rehab OT IP Evaluation Start: 05/13/24 16:33 Freq: ONCE Status: Active Protocol: Document 05/14/24 10:44 [facility] (Rec: 05/14/24 10:46 [facility] [id number]) Rehab OT IP Assessment Subjective History Pt oriented x 3 on arrival. Pt agreeable to engage in therapy evaluation. Pt admitted on 05/13/24 due to Respiratory failure. History and physical: Mr. Lira is an 88-year-old male with previous history of tobacco use, CAD, CKD 3, BPH, history of lung cancer, COPD on chronic oxygen at night who presented to the ER with worsening shortness of breath for the past 2 to 3 days. Was recently admitted at [place] in March from 04 24 through 04 29. Discharged to rehab ([facility]). Presents to the ER today because of worsening shortness of breath. Has not been home along but feels weak. On arrival to the ER, hypoxic with exertion. Afebrile. Denies nausea or vomiting. Having productive cough however. Quite wheezy on initial exam responded well to nebulizers. Found to have slight elevation of BNP. Chest imaging concerning for perihilar lesion on left lung and right upper lobe lesions suspicious for cancer versus infection. Respiratory panel positive for RSV. Medicine consulted for admission for COPD exacerbation. After arrival to the floor, patient is sitting at the bedside on 2 L nasal cannula eating dinner. Answer questions appropriately. Alert and oriented x 4. States he is feeling somewhat short of breath. Denies any fever, nausea, vomiting. Has had a slightly productive cough for 2 to 3 days. Very hard of hearing during interview. States he feels too weak to be at home. Lives with family. Subjective Prior to being in the hospital , pt lived with his son. Pt claims normally he is independent with all ADLS. He is dependent upon family for completion of all IADLs. He does not require any type of AE during functional transfers . Pt wears o2 at night. Pt also still drives. Objective Patient Orientation Person,Place,Birthday Right Upper Extremity Gross ROM WFL Left Upper Extremity Gross ROM WFL Bed Mobility bed mobility-scooting,bed mobility - supine/sit Assist Level Supervision/Stand by Transfer Training Sit/Stand Transfer Assist Level Supervision/Stand by Chair Transfer Ability Supervision/Stand by Chair Transfer Technique Sit to/from Ambulatory Chair Transfer Assistive Devices None Lower Body Dressing Ability Standby Assistance Rehab OT IP prob,goals,plan Problems Date of Evaluation: 05/14/24 Rehab Potential Rehab Potential Innapropriate for Skilled Therapy Discharge Plan OT Discharge Plan Pt appears to be at his baseline with functional transfers and ADL independence . Pt can return home with family once he is medically stable per physician. Eval Complexity Eval Charge Codes 60348 - Low Complexity PHYSICIAN CERTIFICATION: I certify the specified therapy services for Elvis Lira are required, authorized, and reviewed every 30 days.
[2024-05-14] MEDS: SODIUM CHLORIDE 3% 15ML NEB 3 ML IH (12:48)
[2024-05-14] MEDS: CEFTRIAXONE 1 GM 1 GM in 0.9 % SODIUM CHLORIDE 50 ML IV (16:58)
[2024-05-14] MEDS: AZITHROMYCIN 500 MG in 0.9 % SODIUM CHLORIDE 250 ML 250 MG IV (16:58)
--- NOTE | 2024-05-14 17:41 | EXP.PN ---
Subjective *Date: 05/14/24 *Time: 17:41 Interval history: Patient states he feels much better than yesterday, thinks it might have been due to diuresis. Feels very nervous about being discharged before he is ready, as he was recently discharged from [place] for similar presentation for COPD exacerbation Exam Data for Last 24 hours Vital signs and Labs for Last 24 Hours: Temp Pulse Resp BP Pulse Ox O2 Del Method O2 Flow Rate 98.5 F 75 20 140/72 95 Nasal Cannula 2 05/14/24 08:00 05/14/24 12:49 05/14/24 12:49 05/14/24 08:00 05/14/24 12:49 05/14/24 13:00 05/14/24 13:00 Laboratory Results - last 24 hr 05/14/24 06:54: WBC 7.7, RBC 3.24 L, Hgb 10.1 L, Hct 33.4 L, MCV 103.1 H, MCH 31.2, MCHC 30.2 L, RDW 14.5, Plt Count 134 L, MPV 9.8, Neut % (Auto) 85.2 H, Lymph % (Auto) 7.1 L, [place] % (Auto) 7.1, Eos % (Auto) 0.0 L, Baso % (Auto) 0.1, Neut # (Auto) 6.6, Lymph # (Auto) 0.6 L, [place] # (Auto) 0.6, Eos # (Auto) 0.0, Baso # (Auto) 0.0, Sodium 140, Potassium 4.6, Chloride 98, Carbon Dioxide 38 H, Anion Gap 8.6, BUN 35 H D, Creatinine 1.40 H, Estimated Creat Clear 37, Estimated GFR 48 L, Est GFR ( Amer) 58 L, Glucose 105 H D, Calcium 8.7, Magnesium 2.2 D, Total Bilirubin 0.3, AST 25, ALT 22, Alkaline Phosphatase 64, Total Protein 5.4 L, Albumin 3.1 L D, Globulin 2.3, Albumin/Globulin Ratio 1.3 I & O for Last 24 hours: Intake & Output 05/11/24 05/12/24 05/13/24 05/14/24 23:59 23:59 23:59 23:59 Intake Total 980 / 980 Output Total 300 / 300 350 / 350 Balance -300 / -60 630 / 630 Weight 69.4 kg 69.6 kg Microbiology Reports for the Last 24 Hours: Microbiology 05/13/24 14:09 Blood Blood Culture - Preliminary NO GROWTH AFTER 24 HOURS 05/13/24 14:09 Blood Blood Culture - Preliminary NO GROWTH AFTER 24 HOURS Constitutional Constitutional: no acute distress *Routine HEENT Exam Head: Present normocephalic Eye: Present EOMI and PERRL ENT: Present mucous membranes moist *Routine Neck Exam Neck: Present supple; Absent lymphadenopathy *Routine Respiratory Exam Respiratory: Present wheezes and diminished air movement; Absent CTA bilaterally *Routine Cardiovascular Exam Cardiovascular: Present RRR *Routine Abdominal Exam Abdominal: Present soft and normoactive bowel sounds; Absent tenderness *Routine Extremities Exam Extremities: Absent cyanosis, clubbing or edema *Routine Skin Exam Skin: Present warm; Absent rash *Routine Neurological Exam Neurological: Present alert and oriented X3 Assessment and Plan *Assessment and plan (1) Acute and chronic respiratory failure with hypoxia: Status: Acute Category: Medical Code(s): J96.21 - Acute and chronic respiratory failure with hypoxia (2) COPD (chronic obstructive pulmonary disease): Status: Acute Category: Medical Code(s): J44.9 - Chronic obstructive pulmonary disease, unspecified (3) CKD (chronic kidney disease): Status: Acute Category: Medical Code(s): N18.9 - Chronic kidney disease, unspecified (4) Severe protein-calorie malnutrition: Status: Acute Category: Medical Code(s): E43 - Unspecified severe protein-calorie malnutrition Plan Elvis Lira is a 89-year-old male with COPD, CAD, BPH, nocturnal oxygen requirement. Presents with worsening shortness of breath. Found to be RSV positive. Discussed case with ER provider, request admission for further management COPD exacerbation and evaluation of abnormal lesions on chest imaging. I agreed to admit for further care. Patient has previously gotten his care at [place] in [facility]. Reviewed records from their facility, recent admission at the end of March for similar presentation. Discharged from their hospital to rehab. Recently returned home and remains quite weak. Has no infection. Necessitating inpatient care. Problems addressed as follows: #Acute hypoxic respiratory failure #Chronic hypercapnic respiratory failure #COPD exacerbation #RSV positive - Chest imaging reviewed showing left perihilar mass and right upper lobe patchy findings concerning for pneumonia versus mass. ? Continue DuoNebs, Pulmicort, Trelegy. - Continue on ceftriaxone and azithromycin in the ER. ? Continue prednisone 40 mg daily for COPD exacerbation. - Pulmonology consulted to assist with care and further eval of lung lesions seen on chest imaging - Supplemental oxygen as needed, goal sats greater 90%. Currently on 2 L. - Blood gas with compensated respiratory acidosis, pH 7.34. pCO2 63. Chemistry shows normal potassium of 4.2, bicarb 37 on CMP. Kidney function consistent with records from [place] from March. BUN 25, creatinine 1.4. Consistent with CKD. - Blood and sputum cultures pending ? Patient feels very nervous about his COPD exacerbation, especially after being recently discharged from [place] for similar presentation. Patient is improving today, states he feels much better than yesterday. Anticipate discharge tomorrow if patient continues to feel better. ? Pulmonology's plan to repeat CT in 6 to 8 weeks to monitor perihilar mass. #History of CAD and hyperlipidemia ? Continue Lipitor 40 mg nightly, metoprolol succinate 100 mg daily, received Lasix 80 mg IV once. Will evaluate daily for further diuretic needs. -BNP elevated at 1510. Presentation concerning for CHF or COPD exacerbation. Respiratory panel positive for RSV. In light of new oxygen requirement from baseline, viral panel findings, and productive cough, will treat for COPD exacerbation. patient does not clinically look volume overloaded on exam. Holding on further diuresis as patient does not seem volume overloaded. ? Follow-up ECHO. BPH: Continue tamsulosin 0.4 mg nightly Given weakness, recurrent admissions, protein calorie malnutrition, will have PT and OT evaluate patient for home health versus placement. DNR Regular diet
[2024-05-14] MEDS: PANTOPRAZOLE 40MG TABLET 40 MG PO (20:45)
[2024-05-14] MEDS: TAMSULOSIN 0.4MG CAPSULE 0.4 MG PO (20:45)
[2024-05-14] MEDS: ATORVASTATIN 40MG TABLET 40 MG PO (20:45)
[2024-05-15] VITALS: BP 123/67; PULSE 79; RESP 16; TEMP 36.6; O2SAT 90
[2024-05-15 04:00] VITALS: BMI 20.2
[2024-05-15] MEDS: FLUTICASONE/UMECLIDIN/VILANTER 100/62.5/25MCG INHALER 1 PUFF IH (06:12)
[2024-05-15 06:13] VITALS: O2SAT 98
[2024-05-15 07:04] LABS: Basophils % 0.2 % (0.1-2.0); Eosinophils % 0.1 % (0.1-12.0); Hematocrit 33.4 % (42.0-52.0); Hemoglobin 9.8 g/dL (14.1-18.0); Lymphocytes # 1.1 K/mm3 (0.7-4.5); Lymphocytes % 8.5 % (10-50); Mean Corpuscular HGB Conc 29.3 g/dL (31.8-35.4); Mean Corpuscular Hemoglobin 30.8 pg (27.0-31.2); Mean Platelet Volume 10.1 fl (7.4-10.4); Monocytes # 0.9 K/mm3 (0.1-1.0); Monocytes % 7.3 % (1.7-9.3); Neutrophils # 10.3 K/mm3 (1.8-7.8); Neutrophils % 83.4 % (37.0-80.0); Platelet Count 115 K/mm3 (142-424); Red Blood Count 3.18 M/mm3 (4.60-6.20); Red Cell Distribution Width 14.7 % (11.5-17.5); White Blood Count 12.3 K/mm3 (4.8-10.8)
[2024-05-15 07:21] LABS: Alanine Aminotransferase 20 U/L (12-78); Albumin/Globulin Ratio 1.3 (1.1-1.8); Alkaline Phosphatase 61 U/L (38-126); Aspartate Amino Transferase 22 U/L (17-59); Bilirubin,Total 0.2 mg/dl (0.2-1.3); Blood Urea Nitrogen 40 mg/dl (9-20); Calcium 8.4 mg/dl (8.4-10.2); Chloride 102 mmol/L (98-107); Creatinine Clearance Estimated 40 mL/min (50-200); Estimated Glomerular Filt Rate 52 ml/min (>60); GFR (African American) 63 ML/MIN (>60); Globulin 2.3 g/dL (1.3-3.2); Glucose 82 mg/dl (74-100); Magnesium 2.1 mg/dl (1.6-2.3); Potassium 4.3 mmoL/L (3.5-5.1); Sodium 143 mmol/L (136-145); Total Protein,Serum 5.3 g/dl (6.3-8.2)
[2024-05-15 07:29] LABS: Anion Gap 7.3 mEq/L (5-15); Carbon Dioxide 38 mmol/L (22.0-30.0)
[2024-05-15 07:45] VITALS: BP 130/69; PULSE 65; RESP 20; TEMP 36.6; O2SAT 98
[2024-05-15] MEDS: predniSONE 20MG TAB 40 MG PO (08:59)
[2024-05-15] MEDS: ENOXAPARIN 40MG/0.4ML SYRINGE 40 MG SUBCUT (08:59)
[2024-05-15] MEDS: METOPROLOL SUCCINATE XL 100MG TABLET 100 MG PO (08:59)
--- NOTE | 2024-05-15 10:00 | EXP.PULM.PN ---
Subjective *Date: 05/15/24 *Time: 12:07 Interval history: No acute respiratory vents overnight. Patient denies any significant improvement in his respiratory symptoms. Pulmonology Exam Inpatient Vital signs and Labs for Last 24 Hours: Temp Pulse Resp BP Pulse Ox O2 Del Method O2 Flow Rate 97.8 F 65 20 130/69 98 Nasal Cannula 2 05/15/24 07:45 05/15/24 07:45 05/15/24 07:45 05/15/24 07:45 05/15/24 07:45 05/15/24 09:00 05/15/24 09:00 Laboratory Results - last 24 hr 05/14/24 06:54: Carbon Dioxide 38 H, Anion Gap 8.6 05/15/24 06:39: WBC 12.3 H D, RBC 3.18 L, Hgb 9.8 L, Hct 33.4 L, MCV 105.0 H, MCH 30.8, MCHC 29.3 L, RDW 14.7, Plt Count 115 L, MPV 10.1, Neut % (Auto) 83.4 H, Lymph % (Auto) 8.5 L, [place] % (Auto) 7.3, Eos % (Auto) 0.1, Baso % (Auto) 0.2, Neut # (Auto) 10.3 H, Lymph # (Auto) 1.1, [place] # (Auto) 0.9, Eos # (Auto) 0.0, Baso # (Auto) 0.0, Sodium 143, Potassium 4.3, Chloride 102, Carbon Dioxide 38 H, Anion Gap 7.3, BUN 40 H, Creatinine 1.30 H, Estimated Creat Clear 40, Estimated GFR 52 L, Est GFR ( Amer) 63, Glucose 82 D, Calcium 8.4, Magnesium 2.1, Total Bilirubin 0.2, AST 22, ALT 20, Alkaline Phosphatase 61, Total Protein 5.3 L, Albumin 3.0 L, Globulin 2.3, Albumin/Globulin Ratio 1.3 Temp Pulse Resp BP Pulse Ox O2 Del Method O2 Flow Rate 98.5 F 72 20 140/72 92 L Nasal Cannula 2 05/14/24 08:00 05/14/24 08:00 05/14/24 08:00 05/14/24 08:00 05/14/24 08:00 05/14/24 08:00 05/14/24 08:00 Laboratory Results - last 24 hr 05/13/24 14:02: WBC 9.3, RBC 3.53 L, Hgb 11.1 L, Hct 37.0 L, MCV 104.8 H, MCH 31.4 H, MCHC 30.0 L, RDW 14.8, Plt Count 146, MPV 9.8, Neut % (Auto) 77.1, Lymph % (Auto) 13.8, [place] % (Auto) 7.9, Eos % (Auto) 0.6, Baso % (Auto) 0.3, Neut # (Auto) 7.1, Lymph # (Auto) 1.3, [place] # (Auto) 0.7, Eos # (Auto) 0.1, Baso # (Auto) 0.0, D-Dimer 1.24 H, Sodium 137, Potassium 4.2, Chloride 99, Carbon Dioxide 37 H, Anion Gap 5.2, BUN 25 H, Creatinine 1.40 H, Estimated Creat Clear 37, Estimated GFR 48 L, Est GFR ( Amer) 58 L, Glucose 165 H, Calcium 9.1, Magnesium 1.7, Total Bilirubin 0.8, AST 25, ALT 24, Alkaline Phosphatase 67, Troponin I < 0.01, NT-Pro-B Natriuret Pep 1510 H, Total Protein 6.0 L, Albumin 3.5, Globulin 2.5, Albumin/Globulin Ratio 1.4, Procalcitonin 0.067, HCV Ab CORKY w/Rflx PCR Qn Negative, HIV Ag/Ab Combo Qual Negative 05/13/24 14:10: VBG pH 7.34, VBG pCO2 63.6 H, VBG pO2 43.8 H, VBG HCO3 33.2 H, VBG Total CO2 35.1 H, VBG Base Excess 7.3 H, VBG Lactic Acid 2.0 05/13/24 15:28: Urine Color Yellow, Urine Appearance Clear, Urine pH 6.0, Ur Specific [place] 1.025, Urine Protein Negative, Urine Glucose (UA) Negative, Urine Ketones Negative, Urine Blood Negative, Urine Nitrate Negative, Urine Bilirubin Negative, Urine Urobilinogen 0.2, Ur Leukocyte Esterase Trace, Urine RBC 5-10, Urine WBC 10-20, Ur Squamous Epith Cells 3-5, Calcium Oxalate Crystal 1+, Urine Bacteria 2+, Urine Mucus 1+ 05/13/24 15:32: SARS-CoV-2 (PCR) Not detected, Influenza Type A (PCR) Not detected, Influenza Type B (PCR) Not detected, RSV (PCR) Detected A, Rhinovirus (PCR) Not detected 05/14/24 06:54: WBC 7.7, RBC 3.24 L, Hgb 10.1 L, Hct 33.4 L, MCV 103.1 H, MCH 31.2, MCHC 30.2 L, RDW 14.5, Plt Count 134 L, MPV 9.8, Neut % (Auto) 85.2 H, Lymph % (Auto) 7.1 L, [place] % (Auto) 7.1, Eos % (Auto) 0.0 L, Baso % (Auto) 0.1, Neut # (Auto) 6.6, Lymph # (Auto) 0.6 L, [place] # (Auto) 0.6, Eos # (Auto) 0.0, Baso # (Auto) 0.0, Sodium 140, Potassium 4.6, Chloride 98, BUN 35 H D, Creatinine 1.40 H, Estimated Creat Clear 37, Estimated GFR 48 L, Est GFR ( Amer) 58 L, Glucose 105 H D, Calcium 8.7, Magnesium 2.2 D, Total Bilirubin 0.3, AST 25, ALT 22, Alkaline Phosphatase 64, Total Protein 5.4 L, Albumin 3.1 L D, Globulin 2.3, Albumin/Globulin Ratio 1.3 I & O for Labs for Last 24 Hours: Intake & Output 05/12/24 05/13/24 05/14/24 05/15/24 23:59 23:59 23:59 23:59 Intake Total 1390 / 1750 840 / 840 Output Total 300 / 300 350 / 350 0 / 0 Balance -300 / -60 1040 / 1400 840 / 840 Weight 153 lb 153 lb 7.068 oz 152 lb 8.958 oz Intake & Output 05/11/24 05/12/24 05/13/24 05/14/24 23:59 23:59 23:59 23:59 Intake Total 560 / 560 Output Total 300 / 300 350 / 350 Balance -300 / -60 210 / 210 Weight 153 lb 153 lb 7.068 oz Microbiology Reports for the Last 24 Hours: Microbiology 05/13/24 15:28 Urine,Clean Catch Urine Culture - Final No growth. 05/13/24 17:00 Sputum - Expectorated Sputum Gram Stain - Final 05/13/24 17:00 Sputum - Expectorated Sputum Sputum Culture - Preliminary 05/13/24 14:09 Blood Blood Culture - Preliminary NO GROWTH AFTER 24 HOURS 05/13/24 14:09 Blood Blood Culture - Preliminary NO GROWTH AFTER 24 HOURS Constitutional: Present moderate distress Head: Present normocephalic and atraumatic ENT: Present normal exam, normal oropharynx and mucous membranes moist Neck: Present normal inspection and full ROM Respiratory: Present respiratory distress, rhonchi, wheezes and able to speak in complete sentences; Absent crackles or diminished air movement Cardiac: Present S1/S2, Tachycardia and radial pulses present GI: Present soft and distention; Absent tenderness or guarding Skin: Present intact; Absent cyanosis or jaundice Neuro: Present alert, awake and oriented x 3 Extremities: Present normal inspection; Absent clubbing or cyanosis Psychiatric: Present normal affect and cooperative Assessment and Plan *Assessment and plan (1) Multiple lung nodules on CT: Status: Acute Category: Medical Code(s): R91.8 - Other nonspecific abnormal finding of lung field (2) Pneumonia: Status: Acute Category: Medical Code(s): J18.9 - Pneumonia, unspecified organism (3) Pulmonary emphysema: Status: Acute Category: Medical Code(s): J43.9 - Emphysema, unspecified (4) COPD exacerbation: Status: Acute Category: Medical Code(s): J44.1 - Chronic obstructive pulmonary disease with (acute) exacerbation (5) Viral pneumonia: Status: Acute Category: Medical Code(s): J12.9 - Viral pneumonia, unspecified Plan Mr. Lira is a 88-year-old male with history of developing this, CAD, CKD COPD presented to the ER with worsening respiratory distress and pulmonary was called for further evaluation and management. Patient is a current smoker greater than 19-[id number] smoking history at baseline using Breztri inhaler. Recently admitted to hospital in [facility], discharged home on new oxygen supplementation. Patient was also told about the now found concerning lung nodule. CTA on admission, right upper lobe patchy airspace disease, right middle lobe patchy airspace disease and concerning nodular opacity in the left lingula. Emphysematous changes also noted. No evidence of pulmonary embolism. No recent prior imaging available for review/comparison. Patient currently being managed for COPD exacerbation. Afebrile. Hemodynamically stable. No evidence of leukocytosis. Present on admission did not show any evidence of hypoxic respiratory failure. Chronic hypercarbia with a pH of 7.36 and pCO2 of 63.6. RSV PCR resulted positive. Currently receiving ceftriaxone, azithromycin, steroids and nebulization therapy. Interval update: No acute respiratory vents overnight. Sputum pulmonary gram-positive cocci and bacilli. Afebrile. Hemodynamically stable. Slight worsening leukocytosis. Will monitor clinically. Worsening wheezing noted on auscultation today than compared to yesterday. Plan: Continue oxygen supplementation to maintain O2 saturation goal of 90% and above. Weaned to 1 L with saturations dropped to 86%. Continue 2 L nasal cannula oxygen supplementation Continue Breztri 2 puffs twice daily. Home inhaler therapy Albuterol/DuoNebs 4 times daily as needed Continue prednisone 40 mg daily x 5 days Change antibiotics to levofloxacin to complete a total of 5-day course pending record review from outside hospital. Obtain medical records from [facility] including hospital course and CT imaging For the concerning left lingular opacity will follow with repeat CT scanning in 6 to 8 weeks. Will also compare the imaging from his prior imaging from his recent hospital admission. # Thank you for involving pulmonary in this patient care. Will continue to follow.
--- NOTE | 2024-05-15 13:00 | P.DS_ITS ---
General Admission date:: 05/13/24 HPI HPI HPI: Mr. Lira is an 88-year-old male with previous history of tobacco use, CAD, CKD 3, BPH, history of lung cancer, COPD on chronic oxygen at night who presented to the ER with worsening shortness of breath for the past 2 to 3 days. Was recently admitted at [facility] in March from 04 24 through 04 29. Discharged to rehab ([facility]). Presents to the ER today because of worsening shortness of breath. Has not been home along but feels weak. On arrival to the ER, hypoxic with exertion. Afebrile. Denies nausea or vomiting. Having productive cough however. Quite wheezy on initial exam responded well to nebulizers. Found to have slight elevation of BNP. Chest imaging concerning for perihilar lesion on left lung and right upper lobe lesions suspicious for cancer versus infection. Respiratory panel positive for RSV. Medicine consulted for admission for COPD exacerbation. After arrival to the floor, patient is sitting at the bedside on 2 L nasal cannula eating dinner. Answer questions appropriately. Alert and oriented x 4. States he is feeling somewhat short of breath. Denies any fever, nausea, vomiting. Has had a slightly productive cough for 2 to 3 days. Very hard of hearing during interview. States he feels too weak to be at home. Lives with family. Hospital Course Hospital Course Hospital Course: Patient will continue Breztri. Will follow-up with pulmonology Started Lasix 20 mg for suspected HFpEF. Will follow-up with cardiology Exam Data for Last 24 hours Vital signs and Labs for Last 24 Hours: Temp Pulse Resp BP Pulse Ox O2 Del Method O2 Flow Rate 97.8 F 65 20 130/69 98 Nasal Cannula 2 05/15/24 07:45 05/15/24 07:45 05/15/24 07:45 05/15/24 07:45 05/15/24 07:45 05/15/24 12:38 05/15/24 12:38 Laboratory Results - last 24 hr 05/15/24 06:39: WBC 12.3 H D, RBC 3.18 L, Hgb 9.8 L, Hct 33.4 L, MCV 105.0 H, MCH 30.8, MCHC 29.3 L, RDW 14.7, Plt Count 115 L, MPV 10.1, Neut % (Auto) 83.4 H , Lymph % (Auto) 8.5 L, [place] % (Auto) 7.3, Eos % (Auto) 0.1, Baso % (Auto) 0.2, Neut # (Auto) 10.3 H, Lymph # (Auto) 1.1, [place] # (Auto) 0.9, Eos # (Auto) 0.0, Baso # (Auto) 0.0, Sodium 143, Potassium 4.3, Chloride 102, Carbon Dioxide 38 H, Anion Gap 7.3, BUN 40 H, Creatinine 1.30 H, Estimated Creat Clear 40, Estimated GFR 52 L, Est GFR ( Amer) 63, Glucose 82 D, Calcium 8.4, Magnesium 2.1, Total Bilirubin 0.2, AST 22, ALT 20, Alkaline Phosphatase 61, Total Protein 5.3 L, Albumin 3.0 L, Globulin 2.3, Albumin/Globulin Ratio 1.3 I & O for Last 24 hours: Intake & Output 05/12/24 05/13/24 05/14/24 05/15/24 23:59 23:59 23:59 23:59 Intake Total 1390 / 1750 840 / 840 Output Total 300 / 300 350 / 350 0 / 0 Balance -300 / -60 1040 / 1400 840 / 840 Weight 69.4 kg 69.6 kg 69.2 kg Microbiology Reports for the Last 24 Hours: Microbiology 05/13/24 15:28 Urine,Clean Catch Urine Culture - Final No growth. 05/13/24 17:00 Sputum - Expectorated Sputum Gram Stain - Final 05/13/24 17:00 Sputum - Expectorated Sputum Sputum Culture - Preliminary 05/13/24 14:09 Blood Blood Culture - Preliminary NO GROWTH AFTER 24 HOURS 05/13/24 14:09 Blood Blood Culture - Preliminary NO GROWTH AFTER 24 HOURS Results Data Completed and Pending Labs on day of discharge: Labs from last 24 hours 05/15/24 06:39 WBC 12.3 H D RBC 3.18 L Hgb 9.8 L Hct 33.4 L MCV 105.0 H MCH 30.8 MCHC 29.3 L RDW 14.7 Plt Count 115 L MPV 10.1 Neut % (Auto) 83.4 H Lymph % (Auto) 8.5 L [place] % (Auto) 7.3 Eos % (Auto) 0.1 Baso % (Auto) 0.2 Neut # (Auto) 10.3 H Lymph # (Auto) 1.1 [place] # (Auto) 0.9 Eos # (Auto) 0.0 Baso # (Auto) 0.0 Sodium 143 Potassium 4.3 Chloride 102 Carbon Dioxide 38 H Anion Gap 7.3 BUN 40 H Creatinine 1.30 H Estimated Creat Clear 40 Estimated GFR 52 L Est GFR ( Amer) 63 Glucose 82 D Calcium 8.4 Magnesium 2.1 Total Bilirubin 0.2 AST 22 ALT 20 Alkaline Phosphatase 61 Total Protein 5.3 L Albumin 3.0 L Globulin 2.3 Albumin/Globulin Ratio 1.3 Preliminary micro results at discharge 05/13/24 17:00 Sputum Culture - Preliminary Sputum - Expectorated Sputum 05/13/24 14:09 Blood Culture - Preliminary Blood NO GROWTH AFTER 24 HOURS 05/13/24 14:09 Blood Culture - Preliminary Blood NO GROWTH AFTER 24 HOURS DS: Diagnosis Discharge Diagnosis (1) Multiple lung nodules on CT: Status: Acute Code(s): R91.8 - Other nonspecific abnormal finding of lung field (2) Pneumonia: Status: Acute Code(s): J18.9 - Pneumonia, unspecified organism (3) Pulmonary emphysema: Status: Acute Code(s): J43.9 - Emphysema, unspecified (4) COPD exacerbation: Status: Acute Code(s): J44.1 - Chronic obstructive pulmonary disease with (acute) exacerbation (5) Viral pneumonia: Status: Acute Code(s): J12.9 - Viral pneumonia, unspecified Meds Home Medications and Allergies Home Medications ?Medication ?Instructions ?Recorded ?Confirmed ?Type albuterol sulfate 90 mcg/actuation 90 mcg inhalation NEEDED PRN 05/13/24 05/14/24 History aerosol inhaler Shortness Of Breath atorvastatin 40 mg tablet 40 mg PO HS 05/13/24 05/14/24 History metoprolol succinate 100 mg 100 mg PO DAILY 05/13/24 05/14/24 History tablet,extended release 24 hr nifedipine 30 mg tablet,extended 30 mg PO DAILY 05/13/24 05/14/24 History release 24 hr pantoprazole 40 mg tablet,delayed 40 mg PO BID 05/13/24 05/14/24 History release prednisone 10 mg tablet 10 mg PO DAILY 05/13/24 05/14/24 History tamsulosin 0.4 mg capsule 0.4 mg PO HS 05/13/24 05/14/24 History furosemide 20 mg tablet (Lasix) 20 mg PO DAILY #30 tabs 05/15/24 Rx levofloxacin 750 mg tablet 750 mg PO Q48H 4 days #2 tabs 05/15/24 Rx prednisone 20 mg tablet 40 mg (2 x 20 mg) PO DAILY 3 days 05/15/24 Rx #6 tabs New Prescriptions to Start Prescriptions: furosemide [Lasix] FortunatoSukumar levofloxacin Kalkaleigh,Sukumar prednisone KalkaleighSukumar Allergies Allergy/AdvReac Type Severity Reaction Status Date / Time No Known Allergies Allergy Unverified 04/17/17 14:04 Discharge Plan Disposition Patient Disposition: Home, Self-Care Condition: Fair Follow up Plan Follow up with: Jaden Jean MD [Staff Physician] - Enter time for follow up (Suspected HFpEF) Enedelia Patricia MD [Physician] - 05/21/24 Prescriptions/Medication Reconciliation: New prednisone 20 mg Tablet 40 mg PO DAILY 3 Days Qty: 6 0RF levofloxacin 750 mg Tablet 750 mg PO Q48H 4 Days Qty: 2 0RF furosemide [Lasix] 20 mg tablet 20 mg PO DAILY Qty: 30 0RF Continued atorvastatin 40 mg tablet 40 mg PO HS Patient Comments: TAKE 1 TABLET BY MOUTH NIGHTLY. prednisone 10 mg tablet 10 mg PO DAILY Patient Comments: TAKE 1 TABLET BY MOUTH DAILY FOR 10 DAYS. tamsulosin 0.4 mg capsule 0.4 mg PO HS Patient Comments: TAKE 1 CAPSULE BY MOUTH NIGHTLY. pantoprazole 40 mg tablet,delayed release (DR/EC) 40 mg PO BID Patient Comments: TAKE 1 TABLET BY MOUTH 2 TIMES DAILY. albuterol sulfate 90 mcg/actuation HFA aerosol inhaler 90 mcg INHALATION NEEDED PRN (Reason: Shortness Of Breath) metoprolol succinate 100 mg tablet extended release 24 hr 100 mg PO DAILY Patient Comments: TAKE 1 TABLET BY MOUTH DAILY. Held nifedipine 30 mg tablet extended release 24hr 30 mg PO DAILY Hold Instructions: Resume on 05/29/24. Your blood pressures have been stable without this medication. Please follow-up with your PCP to discuss restarting this medication if needed. Problem Reconciliation Problems Reviewed?: Yes Patient Discharge Instructions Patient Instructions: Pneumonia--Adult, DI for Pneumonia -- Adult, DI for Respiratory Syncytial Virus -- Adults, Chronic Kidney Disease, DI for Malnutrition - Older Adults Print Language: Syriac Providers Primary Care Provider: Provider,Referral Admit Provider: Moises Cordova Attending Provider: Moises Cordova
[2024-05-15] MEDS: levoFLOXacin 750 MG TABLET PO (13:20)
--- NOTE | 2024-05-15 14:58 | P.CONPHA_ITS ---
Pharmacy Intervention Comments: COUNSELED PATIENT ON NEW MEDICATIONS AND HELD MEDICATIONS PRIOR TO DISCHARGE. PATIENT HAS DIFFICULTY HEARING AND WAS A BIT CONFUSED. DISCUSSED THIS WITH HIS PRIMARY NURSE. OVERALL PATIENT VERBALIZED UNDERSTANDING AFTER SEVERAL WALK- THROUGHS.
--- NOTE | 2024-05-15 17:49 | CA_ITS ---
APPROVED REPORT EXAM: Comprehensive 2D, Doppler, and color-flow Echocardiogram Composer Teaching Artist: Amy Wolfe CRT Ht: 6 ft 0 in Wt: 153lbs BSA: 1.90 BP: 131/65 mmHg Indications: Resp failure, CAD, CKD, BPH, HX lung and bladder CA, stents, + RSV, HOME O2 2D Dimensions LA Volume 37.60 mL LA Volume Index 19.30 mL/m2 (M/F) 16-34 M-Mode Dimensions RVDd 2.11 cm (0.9-2.6) LA Diam 3.69 cm (1.9-4.0) LVDd 4.75 cm (3.5-5.7) LVDs 2.84 cm (3.5-5.7) IVSd 1.93 cm (0.6-1.1) PWd 0.78 cm (0.6-1.1) EF (Teich) 70.80% FS 40.20% EDV (Teich) 104.90 mL TAPSE 1.87 (<1.7) ESV (Teich) 30.60 mL LV Diastology E Decel Time 203 (160-240 msec) E/A Ratio 0.71 MED A' 17.10 cm/s LAT A' 13.20 cm/s Aortic Valve AO Peak GR. 8.30 mmHg Mitral Valve MV E Max Sky. 69.0 (40-130 cm/s) MV A Velocity 98.0 (40-130 cm/s) E/A Ratio 0.71 MV PHT 60.0 ms Pulmonary Valve PV Peak Velocity 117.0 (50-150 cm/s) Tricuspid Valve TR P. Velocity 299.00 cm/s RAP Estimate 10.00 mmHg RVSP 45.90 mmHg Left Ventricle The left ventricle is normal size. The left ventricular systolic function is normal. The left ventricular ejection fraction is within the normal range. There is increased LV wall thickness. There is normal LV segmental wall motion. The left ventricular diastolic function is normal. LVEF is 55%. Right Ventricle The right ventricle is normal size. The right ventricular systolic function is normal. Atria The left atrium size is normal. The right atrium size is normal. There is no Doppler evidence of interatrial shunt. Aortic Valve The aortic valve is mildly thickened. There is no aortic valvular stenosis. Trace aortic regurgitation. Mitral Valve The mitral valve leaflets are mildly thickened. No evidence of mitral valve stenosis. Mild mitral regurgitation. Tricuspid Valve Tricuspid valve is grossly normal in structure and function. Mild tricuspid regurgitation. RVSP is 35-40 mmHg. Pulmonic Valve The pulmonary valve is normal in structure. Trace pulmonic regurgitation. Great Vessels The aortic root is normal in size. The ascending aorta is not well-visualized. IVC is normal in size and collapses >50% with inspiration. Pericardium There is no pericardial effusion. Other Information Study Quality: Fair Conclusion Normal biventricular systolic function. Mild MR, mild TR. Elevated RVSP 35-40 mmHg. Electronically signed by : Feli Johnston MD 05/16/2024 23:38:46
[2024-05-15 19:27] LABS: QuantiFERON-TB Gold Plus Negative (Negative)
--- NOTE | 2024-05-16 09:58 | SW/DCPLANNER ---
Spoke with patient on the phone. Patient stated that he is doing well. Patient stated that he thinks his son is aware of his upcoming appointments. Patient stated that his medicine was brought to his bedside on his discharge. Patient asked me to call his son and make sure he was aware of his appointments and his medicine. I phoned son and no answer. Patient stated that he doesnt have any concerns or questions at this time. Jorge Badlwin
== END 2024-05-15 16:24 | disposition home health service (06) ==
LOC: ER 16:33 → 2ND 16:46
PROVIDERS: Physician Assistant; Student in an Organized Health Care Education/Training Program; Admitting Provider Internal Medicine Adolescent Medicine; Emergency Provider Emergency Medicine; Visit Provider Internal Medicine Adolescent Medicine
DX: J44.1 Chronic obstructive pulmonary disease with (acute) exacerbation (principal); J12.1 Respiratory syncytial virus pneumonia; J96.01 Acute respiratory failure with hypoxia; J96.12 Chronic respiratory failure with hypercapnia; J44.9 Chronic obstructive pulmonary disease, unspecified; N18.30 Chronic kidney disease, stage 3 unspecified; R91.8 Other nonspecific abnormal finding of lung field; I50.30 Unspecified diastolic (congestive) heart failure; E46 Unspecified protein-calorie malnutrition; E78.5 Hyperlipidemia, unspecified; Z79.52 Long term (current) use of systemic steroids; Z87.891 Personal history of nicotine dependence; Z85.51 Personal history of malignant neoplasm of bladder; Z85.118 Personal history of other malignant neoplasm of bronchus and lung; Z79.51 Long term (current) use of inhaled steroids; Z79.01 Long term (current) use of anticoagulants; Z99.81 Dependence on supplemental oxygen; Z68.20 Body mass index [BMI] 20.0-20.9, adult
CPT/HCPCS: 36415; 71045; 71275; 80053; 81001; 82803; 83735; 83880; 84145; 84484; 85025; 85378; 86480; 86803; 87040; 87070; 87077; 87086; 87205; 87389; 87631; 93005; 93306; 94640; 97163; 97165; 99291; G0378; J0456; J0696; J1650; J1940; J2919; J3475; J7050; J7620; Q9967